=== PATIENT | female | born 1970 | race American Indian/Alaskan Native ===

== ENCOUNTER 2018-08-20 23:55 | Inpatient (IN) | payer MEDICAID, OTHER ==
[2018-08-21] MEDS ORDERED: PROVENTIL IH ONE (00:09)
[2018-08-21] MEDS ORDERED: DECADRON IV ONE (02:57)
[2018-08-21] MEDS ORDERED: DUONEB *Not for PRN Use IH ONE (02:58)
--- NOTE | 2018-08-21 03:01 | Emergency Department Report ---
ED Shortness of Breath HPI - General Chief Complaint: Adult Asthma Stated Complaint: SOB ASTHMA Time Seen by Provider: 08/21/18 02:56 Source: patient Mode of arrival: Ambulatory Limitations: No Limitations - History of Present Illness Initial Comments: 8-year-old -[place] female presents to the emergency room for shortness of breath and asthma flareup that started on . 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 Patient reports she had chest pain but that had resolved after having a treatment in triage. Patient reports she does have a nebulizer machine but has no I Gonzalez nebs as she has not had any flare up in over a year. She does not have a primary care provider at this time. It was noted in triage the patient had a pulse oximetry of 89% on room air. She was tachypneic at 22 and tachycardic at 113. MD Complaint: shortness of breath -: days(s) (2) Improves With: oxygen, bronchodilators Worsens With: coughing, inspiration Known History Of: asthma Associated Symptoms: chest pain (chest resolved), cough Treatments Prior to Arrival: none - Related Data Home Oxygen Therapy: No Home Medications Medication Instructions Recorded Confirmed Last Taken Benzonatate [Zonatuss] 150 mg PO Q8H 07/08/13 07/08/13 Unknown Triamter/Hctz 37.5-25 mg 1 tab PO QDAY 07/08/13 07/08/13 Unknown [Maxzide-25] Previous Rx's Medication Instructions Recorded Last Taken Type Albuterol Sulfate [Albuterol 0.63% 220 mcg IH Q4-6H #25 vial 07/08/13 Unknown Rx NEBS] Azithromycin [Zithromax Z-JUAN JOSE] 250 mg PO DAILY #6 tablet 07/08/13 Unknown Rx Prednisone 20 mg PO QDAY #6 tablet 07/08/13 Unknown Rx Allergies Allergy/AdvReac Type Severity Reaction Status Date / Time Penicillins Allergy Rash Verified 07/08/13 15:11 ED Review of Systems ROS: Stated complaint: SOB ASTHMA Other details as noted in HPI Comment: All other systems reviewed and negative Respiratory: cough, shortness of breath, wheezing Cardiovascular: chest pain ED Past Medical Hx - Past Medical History Previous Medical History?: Yes Hx Asthma: Yes - Surgical History Past Surgical History?: Yes - Social History Smoking Status: Current Every Day Smoker Substance Use Type: None - Medications Home Medications: Home Medications Medication Instructions Recorded Confirmed Last Taken Type Albuterol Sulfate [Albuterol 0.63% 220 mcg IH Q4-6H #25 vial 07/08/13 Unknown Rx NEBS] Azithromycin [Zithromax Z-JUAN JOSE] 250 mg PO DAILY #6 tablet 07/08/13 Unknown Rx Benzonatate [Zonatuss] 150 mg PO Q8H 07/08/13 07/08/13 Unknown History Prednisone 20 mg PO QDAY #6 tablet 07/08/13 Unknown Rx Triamter/Hctz 37.5-25 mg 1 tab PO QDAY 07/08/13 07/08/13 Unknown History [Maxzide-25] ED Physical Exam - General Limitations: No Limitations General appearance: alert, in no apparent distress - Head Head exam: Present: atraumatic, normocephalic - Eye Eye exam: Present: EOMI - ENT ENT exam: Present: mucous membranes moist, TM's normal bilaterally - Respiratory Respiratory exam: Present: wheezes, rhonchi - Cardiovascular Cardiovascular Exam: Present: tachycardia - GI/Abdominal GI/Abdominal exam: Present: soft, normal bowel sounds - Extremities Exam Extremities exam: Present: full ROM - Neurological Exam Neurological exam: Present: alert, oriented X3 - Psychiatric Psychiatric exam: Present: normal affect, normal mood - Skin Skin exam: Present: warm, dry, intact, normal color. Absent: rash ED Course Vital Signs 08/21/18 08/21/18 08/21/18 00:04 00:18 00:42 Temperature 97.9 F Pulse Rate 108 H Pulse Rate [ 99 H 113 H Bilateral Throughout] Respiratory 20 Rate Respiratory 20 22 Rate [Bilateral Throughout] Blood Pressure 178/97 Blood Pressure [Right] O2 Sat by Pulse 89 Oximetry 08/21/18 08/21/18 08/21/18 03:11 03:42 04:56 Temperature Pulse Rate 94 H 92 H Pulse Rate [ Bilateral Throughout] Respiratory 18 16 Rate Respiratory Rate [Bilateral Throughout] Blood Pressure Blood Pressure 165/81 [Right] O2 Sat by Pulse 95 97 93 Oximetry 08/21/18 08/21/18 08/21/18 08:42 08:45 08:50 Temperature Pulse Rate 100 H Pulse Rate [ 104 H 105 H Bilateral Throughout] Respiratory 24 Rate Respiratory 20 20 Rate [Bilateral Throughout] Blood Pressure Blood Pressure 171/91 [Right] O2 Sat by Pulse 97 Oximetry 08/21/18 08/21/18 08:58 09:12 Temperature 98.1 F Pulse Rate 105 H 100 H Pulse Rate [ Bilateral Throughout] Respiratory 24 Rate Respiratory Rate [Bilateral Throughout] Blood Pressure 171/95 Blood Pressure 152/82 [Right] O2 Sat by Pulse 94 Oximetry ED Medical Decision Making - Lab Data Result diagrams: 08/22/18 05:08 08/22/18 05:08 - Radiology Data Radiology results: report reviewed FINAL REPORT EXAM: XR CHEST ROUTINE 2V HISTORY: shortness of breathing and wheezing TECHNIQUE: PA and lateral chest radiographs PRIORS: None. FINDINGS: No mediastinal shift. Cardiac silhouette is not enlarged. No pneumothorax or effusion. Patchy left lower lung opacities. No acute skeletal finding. IMPRESSION: Patchy left lower lung airspace disease without evident effusion. Transcribed By: MB Dictated By: JOSE SAUCEDO MD Electronically Authenticated By: JOSE SAUCEDO MD Signed Date/Time: 08/21/18425 DD/ 7 TD/TT: 08/21/18427 - Medical Decision Making Patient has been evaluated by this provider fast track. Patient's chest x-ray which showed left lower lung opacity Patient had albuterol inhaler in triage which patient reports has helped Patient oxygen saturation was 89 patient was then placed on nasal cannula oxygen 3 L and was able to bring her oxygen to 95% I listened to the patient's lungs patient had decrease in left lower lung as well as rhonchus throughout inspiratory and expiratory. Patient was given dexamethasone 10 mg IM and started a DuoNeb. After patient had DuoNeb and weight of approximately 10 minutes her oxygen level dropped down to 92% on room air. Patient's WBCs 17.9 elevated glucose of 270 and lactic acid of 3.3 sepsis protocol was in place she was started on Levaquin IV and azithromycin IV. Discussed case with Dr. Malachi fitzgeralded patient to be admitted to request for a CTA d-dimer was ordered. Spoke to the hospitalist 7:30 AM he was able to admit the patient under his service. Critical care attestation.: If time is entered above; I have spent that time in minutes in the direct care of this critically ill patient, excluding procedure time. ED Disposition Clinical Impression: Community acquired pneumonia of left lower lobe of lung Disposition: [id number] OP ADMIT IP TO THIS HOSP Is pt being admited?: Yes Does the pt Need Aspirin: Yes Condition: Stable
[2018-08-21] MEDS ORDERED: DECADRON IM ONE (03:15)
[2018-08-21 03:21] LABS: Mean Corpuscular HGB Conc 30 % (30-34); Mean Corpuscular Volume 73 fl (79-97); Platelet Count 331 K/mm3 (140-440); Red Blood Count 5.45 M/mm3 (3.65-5.03); Red Cell Distribution Width 18.6 % (13.2-15.2)
[2018-08-21 03:22] LABS: Hemoglobin 12.1 gm/dl (10.1-14.3)
[2018-08-21 03:23] LABS: Hematocrit 39.8 % (30.3-42.9)
[2018-08-21 03:48] LABS: Alanine Aminotransferase 16 units/L (7-56); Albumin 4.5 g/dL (3.9-5); BUN/Creatinine Ratio 14; Blood Urea Nitrogen 11 mg/dL (7-17); Calcium 9.3 mg/dL (8.4-10.2); Hemolysis Index 24
--- NOTE | 2018-08-21 04:26 | XRay Report ---
FINAL REPORT EXAM: XR CHEST ROUTINE 2V HISTORY: shortness of breathing and wheezing TECHNIQUE: PA and lateral chest radiographs PRIORS: None. FINDINGS: No mediastinal shift. Cardiac silhouette is not enlarged. No pneumothorax or effusion. Patchy left l ower lung opacities. No acute skeletal finding. IMPRESSION: Patchy left lower lung airspace disease without evident effusion.
[2018-08-21 04:35] LABS: Band Neutrophils # (Manual) 0.2 K/mm3; Basophils % (Manual) 0 % (0.0-1.8); Eosinophils % (Manual) 0 % (0.0-4.3); Total Cells Counted 100
[2018-08-21 04:36] LABS: Anisocytosis 1+; Hypochromasia 1+
[2018-08-21] MEDS ORDERED: NACL 0.9% 1000 ML IV ONE (05:22)
[2018-08-21] MEDS: LEVAQUIN 750MG/150ML 750 MG/150 ML BAG IV SCH ×2 (06:29→10:24)
[2018-08-21] MEDS ORDERED: PROVENTIL IH PRN (07:34)
[2018-08-21] MEDS ORDERED: ZOFRAN IV PRN (07:34)
[2018-08-21] MEDS ORDERED: SODIUM CHLORIDE FLUSH SYRINGE 10 ML IV PRN (07:34)
[2018-08-21] MEDS ORDERED: D50W (25GM) Syringe IV PRN ×2 (07:34→07:52)
[2018-08-21 07:35] LABS: Bilirubin,Urine NEG (Negative); Blood,Urine SM (Negative); Color,Urine Straw (Yellow); Mucus,Urine FEW /HPF; Protein,Urine <15 mg/dL mg/dL (Negative); Urobilinogen,Urine < 2.0 mg/dL (<2.0)
--- NOTE | 2018-08-21 07:47 | History and Physical Report ---
History of Present Illness Date of examination: 08/21/18 Date of admission: 08/21/18 Chief complaint: shortness of breath History of present illness: Patient is a 48-year-old -[place] female who presents to the ED with known past medical history of asthma chronic prednisone however noncompliance also history of hypertension has not been taking her pain medication. She presents to the ED with complaints of shortness of breath which started a few days prior to presentation. She denied getting a flu shot last year. She initially felt that this was asthma coming back well fortunately did not have any of her medications to treat this. 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 On arrival to the ED she was not ed to have a saturation of 89% with tachypnea at 22 and tachycardia at 113 with imaging studies concerning for possible pneumonia. The patient reports that she's been having some fullness and pressure for sinus a few days prior to this. Past History Past Medical History: hypertension, other (asthma) Past Surgical History: No surgical history Social history: lives with family, smoking Family history: no significant family history Medications and Allergies Allergies Allergy/AdvReac Type Severity Reaction Status Date / Time Penicillins Allergy Rash Verified 07/08/13 15:11 Home Medications Medication Instructions Recorded Confirmed Last Taken Type Albuterol Sulfate [Albuterol 0.63% 220 mcg IH Q4-6H #25 vial 07/08/13 Unknown Rx NEBS] Azithromycin [Zithromax Z-JUAN JOSE] 250 mg PO DAILY #6 tablet 07/08/13 Unknown Rx Benzonatate [Zonatuss] 150 mg PO Q8H 07/08/13 07/08/13 Unknown History Prednisone 20 mg PO QDAY #6 tablet 07/08/13 Unknown Rx Triamter/Hctz 37.5-25 mg 1 tab PO QDAY 07/08/13 07/08/13 Unknown History [Maxzide-25] Active Meds: Active Medications Azithromycin 500 mg/ Sodium (Chloride) 250 mls @ 250 mls/hr IV Q24HR JEREMIAH; Protocol Levofloxacin/Dextrose (Levaquin 750mg/150ml) 750 mg in 150 mls @ 100 mls/hr IV Q24HR JEREMIAH; Protocol Last Admin: 08/21/18 06:29 Dose: 100 mls/hr Documented by: Review of Systems All systems: negative Constitutional: chills, weakness, no weight loss, no weight gain Cardiovascular: shortness of breath, no chest pain, no orthopnea, no palpitations, no rapid/irregular heart beat Respiratory: cough, shortness of breath, dyspnea on exertion, no cough with sputum, no excessive sputum Exam - Physical Exam Narrative exam: VITAL SIGNS: Reviewed. GENERAL: The patient appeared well nourished and normally developed. In mild to moderate respiratory distress Vital signs as documented. HEAD: No signs of head trauma. EYES: Pupils are equal. Extraocular motions intact. Expothalmus EARS: Hearing grossly intact. MOUTH: Oropharynx is normal. NECK: No adenopathy, no JVD. CHEST: Chest with bilateral expiratory wheezing breath sounds bilaterally. No , rales, or rhonchi. CARDIAC: Regular rate and rhythm. S1 and S2, without murmurs, gallops, or rubs. VASCULAR: No Edema. Peripheral pulses normal and equal in all extremities. ABDOMEN: Soft, without detectable tenderness. No sign of distention. No rebound or guarding, and no masses palpated. Bowel Sounds normal. MUSCULOSKELETAL: Good range of motion of all major joints. Extremities without clubbing, cyanosis or edema. NEUROLOGIC EXAM: Alert and oriented x 3. No focal sensory or strength deficits. Speech normal. Follows commands. PSYCHIATRIC: Mood normal. SKIN: No rash or lesions. - Constitutional Vitals: Temp Pulse Resp BP Pulse Ox 97.9 F 92 H 16 165/81 93 08/21/18 00:04 08/21/18 03:42 08/21/18 04:56 08/21/18 03:42 08/21/18 04:56 Results - Labs CBC & Chem 7: 08/21/18 03:05 08/21/18 03:05 Labs: Laboratory Last Values WBC 17.9 K/mm3 (4.5-11.0) H 08/21/18 03:05 RBC 5.45 M/mm3 (3.65-5.03) H 08/21/18 03:05 Hgb 12.1 gm/dl (10.1-14.3) 08/21/18 03:05 Hct 39.8 % (30.3-42.9) 08/21/18 03:05 MCV 73 fl (79-97) L 08/21/18 03:05 MCH 22 pg (28-32) L 08/21/18 03:05 MCHC 30 % (30-34) 08/21/18 03:05 RDW 18.6 % (13.2-15.2) H 08/21/18 03:05 Plt Count 331 K/mm3 (140-440) 08/21/18 03:05 Add Manual Diff Complete 08/21/18 03:05 Total Counted 100 08/21/18 03:05 Seg Neutrophils % Scene [employer] 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 08/21/18 03:05 Seg Neuts % (Manual) 96.0 % (40.0-70.0) H 08/21/18 03:05 Band Neutrophils % 1.0 % 08/21/18 03:05 Lymphocytes % (Manual) 2.0 % (13.4-35.0) L 08/21/18 03:05 Reactive Lymphs % (Man) 0 % 08/21/18 03:05 Monocytes % (Manual) 1.0 % (0.0-7.3) 08/21/18 03:05 Eosinophils % (Manual) 0 % (0.0-4.3) 08/21/18 03:05 Basophils % (Manual) 0 % (0.0-1.8) 08/21/18 03:05 Metamyelocytes % 0 % 08/21/18 03:05 Myelocytes % 0 % 08/21/18 03:05 Promyelocytes % 0 % 08/21/18 03:05 Blast Cells % 0 % 08/21/18 03:05 Nucleated RBC % Not Reportable 08/21/18 03:05 Seg Neutrophils # Man 17.2 K/mm3 (1.8-7.7) H 08/21/18 03:05 Band Neutrophils # 0.2 K/mm3 08/21/18 03:05 Lymphocytes # (Manual) 0.4 K/mm3 (1.2-5.4) L 08/21/18 03:05 Abs React Lymphs (Man) 0.0 K/mm3 08/21/18 03:05 Monocytes # (Manual) 0.2 K/mm3 (0.0-0.8) 08/21/18 03:05 Eosinophils # (Manual) 0.0 K/mm3 (0.0-0.4) 08/21/18 03:05 Basophils # (Manual) 0.0 K/mm3 (0.0-0.1) 08/21/18 03:05 Metamyelocytes # 0.0 K/mm3 08/21/18 03:05 Myelocytes # 0.0 K/mm3 08/21/18 03:05 Promyelocytes # 0.0 K/mm3 08/21/18 03:05 Blast Cells # 0.0 K/mm3 08/21/18 03:05 WBC Morphology Not Reportable 08/21/18 03:05 Hypersegmented Neuts Not Reportable 08/21/18 03:05 Hyposegmented Neuts Not Reportable 08/21/18 03:05 Hypogranular Neuts Not Reportable 08/21/18 03:05 Smudge Cells Not Reportable 08/21/18 03:05 Toxic Granulation Not Reportable 08/21/18 03:05 Toxic Vacuolation Not Reportable 08/21/18 03:05 Dohle Bodies Not Reportable 08/21/18 03:05 Pelger-Huet Anomaly Not Reportable 08/21/18 03:05 Tonja Rods Not Reportable 08/21/18 03:05 Platelet Estimate Appears normal 08/21/18 03:05 Clumped Platelets Not Reportable 08/21/18 03:05 Plt Clumps, EDTA Not Reportable 08/21/18 03:05 Large Platelets Not Reportable 08/21/18 03:05 Giant Platelets Not Reportable 08/21/18 03:05 Platelet Satelliting Not Reportable 08/21/18 03:05 Plt Morphology Comment Not Reportable 08/21/18 03:05 RBC Morphology Not Reportable 08/21/18 03:05 Dimorphic RBCs Not Reportable 08/21/18 03:05 Polychromasia Not Reportable 08/21/18 03:05 Hypochromasia 1+ 08/21/18 03:05 Poikilocytosis Not Reportable 08/21/18 03:05 Anisocytosis 1+ 08/21/18 03:05 Microcytosis Not Reportable 08/21/18 03:05 Macrocytosis Not Reportable 08/21/18 03:05 Spherocytes Not Reportable 08/21/18 03:05 Pappenheimer Bodies Not Reportable 08/21/18 03:05 Sickle Cells Not Reportable 08/21/18 03:05 Target Cells Not Reportable 08/21/18 03:05 Tear Drop Cells Not Reportable 08/21/18 03:05 Ovalocytes Not Reportable 08/21/18 03:05 Helmet Cells Not Reportable 08/21/18 03:05 [place] Bodies Not Reportable 08/21/18 03:05 [place] Rings Not Reportable 08/21/18 03:05 [place] Cells Not Reportable 08/21/18 03:05 Bite Cells Not Reportable 08/21/18 03:05 Crenated Cell Not Reportable 08/21/18 03:05 Elliptocytes Not Reportable 08/21/18 03:05 Acanthocytes (Spur) Not Reportable 08/21/18 03:05 Rouleaux Not Reportable 08/21/18 03:05 Hemoglobin C Crystals Not Reportable 08/21/18 03:05 Schistocytes Not Reportable 08/21/18 03:05 Malaria parasites Not Reportable 08/21/18 03:05 Shukri Bodies Not Reportable 08/21/18 03:05 Hem Pathologist Commnt No 08/21/18 03:05 D-Dimer 248.45 ng/mlDDU (0-234) H 08/21/18 05:50 Sodium 135 mmol/L (137-145) L 08/21/18 03:05 Potassium 3.9 mmol/L (3.6-5.0) 08/21/18 03:05 Chloride 95.8 mmol/L (98-107) L 08/21/18 03:05 Carbon Dioxide 24 mmol/L (22-30) 08/21/18 03:05 Anion Gap 19 mmol/L 08/21/18 03:05 BUN 11 mg/dL (7-17) 08/21/18 03:05 Creatinine 0.8 mg/dL (0.7-1.2) 08/21/18 03:05 Estimated GFR > 60 ml/min 08/21/18 03:05 BUN/Creatinine Ratio 14 % 08/21/18 03:05 Glucose 270 mg/dL (65-100) H 08/21/18 03:05 Lactic Acid 3.30 mmol/L (0.7-2.0) H* 08/21/18 06:51 Calcium 9.3 mg/dL (8.4-10.2) 08/21/18 03:05 Total Bilirubin 0.20 mg/dL (0.1-1.2) 08/21/18 03:05 AST 11 units/L (5-40) 08/21/18 03:05 ALT 16 units/L (7-56) 08/21/18 03:05 Alkaline Phosphatase 79 units/L (35-129) 08/21/18 03:05 Total Protein 7.5 g/dL (6.3-8.2) 08/21/18 03:05 Albumin 4.5 g/dL (3.9-5) 08/21/18 03:05 Albumin/Globulin Ratio 1.5 % 08/21/18 03:05 TSH 0.411 mlU/mL (0.270-4.200) 08/21/18 03:05 Free T4 1.27 ng/dL (0.76-1.46) 08/21/18 03:05 HCG, Qual Negative (Negative) 08/21/18 03:05 Urine Color Straw (Yellow) 08/21/18 06:51 Urine Turbidity Turbid (Clear) 08/21/18 06:51 Urine pH 5.0 (5.0-7.0) 08/21/18 06:51 Ur Specific [place] 1.033 (1.003-1.030) H 08/21/18 06:51 Urine Protein <15 mg/dl mg/dL (Negative) 08/21/18 06:51 Urine Glucose (UA) >=500 mg/dL (Negative) 08/21/18 06:51 Urine Ketones Tr mg/dL (Negative) 08/21/18 06:51 Urine Blood Sm (Negative) 08/21/18 06:51 Urine Nitrite Neg (Negative) 08/21/18 06:51 Urine Bilirubin Neg (Negative) 08/21/18 06:51 Urine Urobilinogen < 2.0 mg/dL (<2.0) 08/21/18 06:51 Ur Leukocyte Esterase Neg (Negative) 08/21/18 06:51 Urine WBC (Auto) 4.0 /HPF (0.0-6.0) 08/21/18 06:51 Urine RBC (Auto) 6.0 /HPF (0.0-6.0) 08/21/18 06:51 U Epithel Cells (Auto) 2.0 /HPF (0-13.0) 08/21/18 06:51 Urine Mucus Few /HPF 08/21/18 06:51 - Imaging and Cardiology Chest x-ray: image reviewed (PATCHY RIGHT LOBAR INFILTRRATE) Assessment and Plan Assessment and plan: Patient is a 48-year-old -[place] female who presents to the ED with known past medical history of asthma chronic prednisone however noncompliance also history of hypertension has not been taking her pain medication. She presents to the ED with complaints of shortness of breath which started a few days prior to presentation. She denied getting a flu shot last year. She initially felt that this was asthma coming back well fortunately did not have any of her medications to treat this. 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 On arrival to the ED she was noted to have a saturation of 89% with tachypnea at 22 and tachycardia at 113 with imaging studies concerning for possible pneumonia. The patient reports that she's been having some fullness and pressure for sinus a few days prior to this. She unfortunately continues to smoke Acute Respiratory failure with Hypoxia Right lower lobe pneumonia Sepsis secondary to Pneumonia Non compliance with flu shot last year Morbid obesity Tobacco abuse Asthma with exacerbation HTN- Non compliant with meds due to swelling Chronic Prednisone use Lactic acidosis Secondary Coagulopathy Plan: Admit to [facility] Continue abx as started in the ED Start on Steroids taper Nebs, LABA, AVA, oxygen check ABG Insulin sliding scale Counselling provided on need to be complaint, tobacco use Check A1c Counselling on weightloss dvt./gi prophy Plan discussed with patient in detail Advance Directives: Yes Plan of care discussed with patient/family: Yes
--- NOTE | 2018-08-21 08:28 | Cat Scan Report ---
FINAL REPORT EXAM: CT ANGIO CHEST HISTORY: hypoxic and tachypnea TECHNIQUE: CT imaging obtained through the chest in pulmonary angiographic phase following intraveno us administration of contrast. Transaxial, Coronal and sagittal reformats with maximal intensity proj ections are provided. PRIORS: Chest radiograph of the same date FINDINGS: Normal caliber main pulmonary artery. Suboptimal opacification of the pulmonary arterial tree. No sad dle pulmonary embolism. No pericardial effusion. A prominent right hilar lymph node measures 17 x 19 millimeters on axial series 2, image 48. Thoracic aorta is normal in course and caliber. No periaortic fluid or stranding. No pneumothorax or effusion. Patchy areas of ground-glass attenuation are present in the left greater than right lung. Imaged portion of the upper abdomen is unremarkable. The superficial soft tissues are unremarkable. No acute bony abnormality or worrisome osseous lesions identified. IMPRESSION: No saddle pulmonary embolism. Suboptimal opacification of the pulmonary arterial tree compromises mor e detailed evaluation. Multifocal left greater than right lung airspace disease without effusion or pneumothorax.
[2018-08-21] MEDS: PULMICORT IH SCH ×2 (08:39→19:53)
[2018-08-21] MEDS: BROVANA NEBU IH SCH ×2 (08:39→19:53)
[2018-08-21] MEDS: DUONEB *Not for PRN Use IH SCH ×3 (08:40→19:59)
[2018-08-21] MEDS ORDERED: APRESOLINE ONE (08:49)
[2018-08-21] MEDS: APRESOLINE IV PRN (08:58)
[2018-08-21] MEDS: ZITHROMAX 500 MG in NACL 0.9% 250ML 250 ML IV SCH (10:22)
[2018-08-21] MEDS: MAXZIDE-25 PO SCH ×2 (10:23→10:24)
[2018-08-21] MEDS: SODIUM CHLORIDE FLUSH SYRINGE 10 ML IV SCH ×2 (10:24→22:21)
[2018-08-21] MEDS: HEPARIN SUB-Q SCH ×2 (11:30→22:20)
[2018-08-21] MEDS: NACL 0.9% 1000 ML 1,000 ML IV SCH (12:45)
[2018-08-21] MEDS: HABITROL TD SCH (12:45)
[2018-08-21] MEDS: HumaLOG SUB-Q SCH ×3 (12:50→22:32)
[2018-08-21] MEDS: TESSALON PERLES PO SCH ×2 (14:00→23:52)
[2018-08-21] MEDS: SOLU-Medrol IV SCH ×2 (15:37→22:20)
[2018-08-21] MEDS: TYLENOL PO PRN (15:40)
[2018-08-21] MEDS ORDERED: BENADRYL PO ONE (21:24)
[2018-08-21] MEDS: MORPHINE IV PRN (22:21)
[2018-08-22] MEDS: DUONEB *Not for PRN Use IH SCH ×4 (02:18→21:15)
[2018-08-22 05:32] LABS: Hematocrit 36.6 % (30.3-42.9); Hemoglobin 11.2 gm/dl (10.1-14.3); Mean Corpuscular HGB Conc 31 % (30-34); Mean Corpuscular Volume 71 fl (79-97); Platelet Count 318 K/mm3 (140-440); Red Blood Count 5.15 M/mm3 (3.65-5.03); Red Cell Distribution Width 18.7 % (13.2-15.2)
[2018-08-22] MEDS: SOLU-Medrol IV SCH ×2 (05:39→14:59)
[2018-08-22] MEDS: MORPHINE IV PRN (05:40)
[2018-08-22] MEDS: TESSALON PERLES PO SCH ×3 (05:40→22:35)
[2018-08-22 05:42] LABS: BUN/Creatinine Ratio 14; Blood Urea Nitrogen 11 mg/dL (7-17); Calcium 8.8 mg/dL (8.4-10.2); Hemolysis Index 3
[2018-08-22 06:49] LABS: Band Neutrophils # (Manual) 0.7 K/mm3; Basophils % (Manual) 0 % (0.0-1.8); Eosinophils % (Manual) 0 % (0.0-4.3); Total Cells Counted 100
[2018-08-22 06:50] LABS: Anisocytosis 1+; Platelet Estimate Consistent w Auto
[2018-08-22] MEDS: BROVANA NEBU IH SCH ×2 (08:12→19:39)
[2018-08-22] MEDS: PULMICORT IH SCH ×2 (08:12→19:39)
[2018-08-22] MEDS: LEVAQUIN 750MG/150ML 750 MG/150 ML BAG IV SCH (09:05)
[2018-08-22] MEDS: HumaLOG SUB-Q SCH ×4 (09:06→22:49)
[2018-08-22] MEDS: HABITROL TD SCH (09:08)
[2018-08-22] MEDS: HEPARIN SUB-Q SCH ×2 (09:08→22:35)
[2018-08-22] MEDS: MAXZIDE-25 PO SCH (09:10)
[2018-08-22] MEDS: SODIUM CHLORIDE FLUSH SYRINGE 10 ML IV SCH ×2 (09:20→22:35)
[2018-08-22] MEDS: ZITHROMAX 500 MG in NACL 0.9% 250ML 250 ML IV SCH (12:28)
--- NOTE | 2018-08-22 14:31 | Progress Note ---
Assessment and Plan Assessment and plan: Patient is a 48-year-old -[place] female who presents to the ED with known past medical history of asthma chronic prednisone however noncompliance also history of hypertension has not been taking her pain medication. She presents to the ED with complaints of shortness of breath which started a few days prior to presentation. She denied getting a flu shot last year. She initially felt that this was asthma coming back well fortunately did not have any of her medications to treat this. 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 On arrival to the ED she was noted to have a saturation of 89% with tachypnea at 22 and tachycardia at 113 with imaging studies concerning for possible pneumonia. The patient reports that she's been having some fullness and pressure for sinus a few days prior to this. She unfortunately continues to smoke Acute Respiratory failure with Hypoxia Right lower lobe pneumonia Sepsis secondary to Pneumonia Non compliance with flu shot last year Morbid obesity Diabetes Mellitus- by A1C criteria- ?new diagnosis Tobacco abuse Asthma with exacerbation HTN- Non compliant with meds due to swelling Chronic Prednisone use Lactic acidosis Secondary Coagulopathy Plan: Continue supportive care Continue abx as started in the ED Taper Steroids Nebs, LABA, AVA, oxygen check ABG Insulin sliding scale Counselling provided on need to be complaint, tobacco use A1c 7.5- discussed with patient. Counselling on weightloss dvt./gi prophy Plan discussed with patient in detail History Interval history: Patient seen and examined, admitted with respiratory failure. Reports some improvement but not yet at baseline. Hospitalist Physical - Physical exam Narrative exam: VITAL SIGNS: Reviewed. GENERAL: The patient appeared well nourished and normally developed. In mild to moderate respiratory distress Vital signs as documented. HEAD: No signs of head trauma. EYES: Pupils are equal. Extraocular motions intact. Expothalmus EARS: Hearing grossly intact. MOUTH: Oropharynx is normal. NECK: No adenopathy, no JVD. CHEST: Chest with bilateral expiratory wheezing breath sounds bilaterally persist, although improved compared to yesterday. No , rales, or rhonchi. CARDIAC: Regular rate and rhythm. S1 and S2, without murmurs, gallops, or rubs. VASCULAR: No Edema. Peripheral pulses normal and equal in all extremities. ABDOMEN: Soft, without detectable tenderness. No sign of distention. No rebound or guarding, and no masses palpated. Bowel Sounds normal. MUSCULOSKELETAL: Good range of motion of all major joints. Extremities without clubbing, cyanosis or edema. NEUROLOGIC EXAM: Alert and oriented x 3. No focal sensory or strength deficits. Speech normal. Follows commands. PSYCHIATRIC: Mood normal. SKIN: No rash or lesions. - Constitutional Vitals: Temp Pulse Resp BP Pulse Ox 98.6 F 78 20 154/81 94 08/22/18 05:20 08/22/18 13:58 08/22/18 13:58 08/22/18 05:20 08/22/18 08:15 Results - Labs CBC & Chem 7: 08/22/18 05:08 08/22/18 05:08 Labs: Laboratory Last Values WBC 18.4 K/mm3 (4.5-11.0) H 08/22/18 05:08 RBC 5.15 M/mm3 (3.65-5.03) H 08/22/18 05:08 Hgb 11.2 gm/dl (10.1-14.3) 08/22/18 05:08 Hct 36.6 % (30.3-42.9) 08/22/18 05:08 MCV 71 fl (79-97) L 08/22/18 05:08 MCH 22 pg (28-32) L 08/22/18 05:08 MCHC 31 % (30-34) 08/22/18 05:08 RDW 18.7 % (13.2-15.2) H 08/22/18 05:08 Plt Count 318 K/mm3 (140-440) 08/22/18 05:08 Add Manual Diff Complete 08/22/18 05:08 Total Counted 100 08/22/18 05:08 Seg Neutrophils % Medical Record Librarians Teacher 08/22/18 05:08 Seg Neuts % (Manual) 91.0 % (40.0-70.0) H 08/22/18 05:08 Band Neutrophils % 4.0 % 08/22/18 05:08 Lymphocytes % (Manual) 4.0 % (13.4-35.0) L 08/22/18 05:08 Reactive Lymphs % (Man) 0 % 08/22/18 05:08 Monocytes % (Manual) 1.0 % (0.0-7.3) 08/22/18 05:08 Eosinophils % (Manual) 0 % (0.0-4.3) 08/22/18 05:08 Basophils % (Manual) 0 % (0.0-1.8) 08/22/18 05:08 Metamyelocytes % 0 % 08/22/18 05:08 Myelocytes % 0 % 08/22/18 05:08 Promyelocytes % 0 % 08/22/18 05:08 Blast Cells % 0 % 08/22/18 05:08 Nucleated RBC % Not Reportable 08/22/18 05:08 Seg Neutrophils # Man 16.7 K/mm3 (1.8-7.7) H 08/22/18 05:08 Band Neutrophils # 0.7 K/mm3 08/22/18 05:08 Lymphocytes # (Manual) 0.7 K/mm3 (1.2-5.4) L 08/22/18 05:08 Abs React Lymphs (Man) 0.0 K/mm3 08/22/18 05:08 Monocytes # (Manual) 0.2 K/mm3 (0.0-0.8) 08/22/18 05:08 Eosinophils # (Manual) 0.0 K/mm3 (0.0-0.4) 08/22/18 05:08 Basophils # (Manual) 0.0 K/mm3 (0.0-0.1) 08/22/18 05:08 Metamyelocytes # 0.0 K/mm3 08/22/18 05:08 Myelocytes # 0.0 K/mm3 08/22/18 05:08 Promyelocytes # 0.0 K/mm3 08/22/18 05:08 Blast Cells # 0.0 K/mm3 08/22/18 05:08 WBC Morphology Not Reportable 08/22/18 05:08 Hypersegmented Neuts Not Reportable 08/22/18 05:08 Hyposegmented Neuts Not Reportable 08/22/18 05:08 Hypogranular Neuts Not Reportable 08/22/18 05:08 Smudge Cells Not Reportable 08/22/18 05:08 Toxic Granulation Not Reportable 08/22/18 05:08 Toxic Vacuolation Not Reportable 08/22/18 05:08 Dohle Bodies Not Reportable 08/22/18 05:08 Pelger-Huet Anomaly Not Reportable 08/22/18 05:08 Tonja Rods Not Reportable 08/22/18 05:08 Platelet Estimate Consistent w auto 08/22/18 05:08 Clumped Platelets Not Reportable 08/22/18 05:08 Plt Clumps, EDTA Not Reportable 08/22/18 05:08 Large Platelets Not Reportable 08/22/18 05:08 Giant Platelets Not Reportable 08/22/18 05:08 Platelet Satelliting Not Reportable 08/22/18 05:08 Plt Morphology Comment Not Reportable 08/22/18 05:08 RBC Morphology Not Reportable 08/22/18 05:08 Dimorphic RBCs Not Reportable 08/22/18 05:08 Polychromasia Not Reportable 08/22/18 05:08 Hypochromasia Not Reportable 08/22/18 05:08 Poikilocytosis Not Reportable 08/22/18 05:08 Anisocytosis 1+ 08/22/18 05:08 Microcytosis Not Reportable 08/22/18 05:08 Macrocytosis Not Reportable 08/22/18 05:08 Spherocytes Not Reportable 08/22/18 05:08 Pappenheimer Bodies Not Reportable 08/22/18 05:08 Sickle Cells Not Reportable 08/22/18 05:08 Target Cells Not Reportable 08/22/18 05:08 Tear Drop Cells Not Reportable 08/22/18 05:08 Ovalocytes Not Reportable 08/22/18 05:08 Helmet Cells Not Reportable 08/22/18 05:08 [place] Bodies Not Reportable 08/22/18 05:08 [place] Rings Not Reportable 08/22/18 05:08 [place] Cells Not Reportable 08/22/18 05:08 Bite Cells Not Reportable 08/22/18 05:08 Crenated Cell Not Reportable 08/22/18 05:08 Elliptocytes Few 08/22/18 05:08 Acanthocytes (Spur) Not Reportable 08/22/18 05:08 Rouleaux Not Reportable 08/22/18 05:08 Hemoglobin C Crystals Not Reportable 08/22/18 05:08 Schistocytes Not Reportable 08/22/18 05:08 Malaria parasites Not Reportable 08/22/18 05:08 Shukri Bodies Not Reportable 08/22/18 05:08 Hem Pathologist Commnt No 08/22/18 05:08 D-Dimer 248.45 ng/mlDDU (0-234) H 08/21/18 05:50 POC ABG pH 7.412 (7.35-7.45) 08/21/18 09:07 POC ABG pCO2 35.4 (35-45) 08/21/18 09:07 POC ABG pO2 56 (80-105) L 08/21/18 09:07 POC ABG HCO3 22.5 08/21/18 09:07 POC ABG Total CO2 24 08/21/18 09:07 POC ABG O2 Sat 89 08/21/18 09:07 POC ABG Base Excess -2 08/21/18 09:07 FiO2 21 % 08/21/18 09:07 Sodium 138 mmol/L (137-145) 08/22/18 05:08 Potassium 4.0 mmol/L (3.6-5.0) 08/22/18 05:08 Chloride 100.7 mmol/L (98-107) 08/22/18 05:08 Carbon Dioxide 24 mmol/L (22-30) 08/22/18 05:08 Anion Gap 17 mmol/L 08/22/18 05:08 BUN 11 mg/dL (7-17) 08/22/18 05:08 Creatinine 0.8 mg/dL (0.7-1.2) 08/22/18 05:08 Estimated GFR > 60 ml/min 08/22/18 05:08 BUN/Creatinine Ratio 14 % 08/22/18 05:08 Glucose 196 mg/dL (65-100) H 08/22/18 05:08 POC Glucose 247 (70-105) H 08/22/18 11:28 Hemoglobin A1c 7.5 % (4-6) H 08/21/18 08:19 Lactic Acid 1.00 mmol/L (0.7-2.0) 08/22/18 05:08 Calcium 8.8 mg/dL (8.4-10.2) 08/22/18 05:08 Total Bilirubin 0.20 mg/dL (0.1-1.2) 08/21/18 03:05 AST 11 units/L (5-40) 08/21/18 03:05 ALT 16 units/L (7-56) 08/21/18 03:05 Alkaline Phosphatase 79 units/L (35-129) 08/21/18 03:05 Total Protein 7.5 g/dL (6.3-8.2) 08/21/18 03:05 Albumin 4.5 g/dL (3.9-5) 08/21/18 03:05 Albumin/Globulin Ratio 1.5 % 08/21/18 03:05 TSH 0.411 mlU/mL (0.270-4.200) 08/21/18 03:05 Free T4 1.27 ng/dL (0.76-1.46) 08/21/18 03:05 HCG, Qual Negative (Negative) 08/21/18 03:05 Urine Color Straw (Yellow) 08/21/18 06:51 Urine Turbidity Turbid (Clear) 08/21/18 06:51 Urine pH 5.0 (5.0-7.0) 08/21/18 06:51 Ur Specific [place] 1.033 (1.003-1.030) H 08/21/18 06:51 Urine Protein <15 mg/dl mg/dL (Negative) 08/21/18 06:51 Urine Glucose (UA) >=500 mg/dL (Negative) 08/21/18 06:51 Urine Ketones Tr mg/dL (Negative) 08/21/18 06:51 Urine Blood Sm (Negative) 08/21/18 06:51 Urine Nitrite Neg (Negative) 08/21/18 06:51 Urine Bilirubin Neg (Negative) 08/21/18 06:51 Urine Urobilinogen < 2.0 mg/dL (<2.0) 08/21/18 06:51 Ur Leukocyte Esterase Neg (Negative) 08/21/18 06:51 Urine WBC (Auto) 4.0 /HPF (0.0-6.0) 08/21/18 06:51 Urine RBC (Auto) 6.0 /HPF (0.0-6.0) 08/21/18 06:51 U Epithel Cells (Auto) 2.0 /HPF (0-13.0) 08/21/18 06:51 Urine Mucus Few /HPF 08/21/18 06:51 Blood Type A POSITIVE 08/21/18 05:50 Antibody Screen Negative 08/21/18 05:50
[2018-08-22] MEDS ORDERED: D50W (25GM) Syringe IV PRN (14:32)
[2018-08-22] MEDS: TYLENOL PO PRN (14:57)
[2018-08-22] MEDS: NACL 0.9% 1000 ML 1,000 ML IV SCH (18:51)
[2018-08-22] MEDS: COLACE PO SCH (22:35)
[2018-08-22] MEDS: LANTUS SUB-Q SCH (22:35)
[2018-08-22] MEDS: MILK OF MAGNESIA PO PRN (22:36)
[2018-08-23] MEDS: DUONEB *Not for PRN Use IH SCH ×4 (02:10→21:23)
[2018-08-23] MEDS: SOLU-Medrol IV SCH ×2 (06:31→15:35)
[2018-08-23] MEDS: MILK OF MAGNESIA PO PRN (06:32)
[2018-08-23] MEDS: TESSALON PERLES PO SCH ×3 (06:32→22:06)
[2018-08-23] MEDS: PULMICORT IH SCH ×2 (07:01→21:22)
[2018-08-23] MEDS: BROVANA NEBU IH SCH ×2 (07:01→21:22)
[2018-08-23] MEDS: HumaLOG SUB-Q SCH ×4 (08:35→22:07)
[2018-08-23] MEDS: MAXZIDE-25 PO SCH (10:45)
[2018-08-23] MEDS: LEVAQUIN 750MG/150ML 750 MG/150 ML BAG IV SCH (10:45)
[2018-08-23] MEDS: HABITROL TD SCH (10:45)
[2018-08-23] MEDS: COLACE PO SCH ×2 (10:45→22:06)
[2018-08-23] MEDS: SODIUM CHLORIDE FLUSH SYRINGE 10 ML IV SCH ×2 (10:46→22:08)
[2018-08-23] MEDS: ZITHROMAX 500 MG in NACL 0.9% 250ML 250 ML IV SCH (11:17)
[2018-08-23] MEDS: HEPARIN SUB-Q SCH ×2 (11:19→22:08)
[2018-08-23] MEDS ORDERED: AFLURIA QUAD 2018-2019 SYRINGE IM ONE (12:00)
[2018-08-23] MEDS: TYLENOL PO PRN (17:52)
--- NOTE | 2018-08-23 17:53 | Progress Note ---
Assessment and Plan Assessment and plan: Patient is a 48-year-old -[place] female who presents to the ED with known past medical history of asthma chronic prednisone however noncompliance also history of hypertension has not been taking her pain medication. She presents to the ED with complaints of shortness of breath which started a few days prior to presentation. She denied getting a flu shot last year. She initially felt that this was asthma coming back well fortunately did not have any of her medications to treat this. 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 On arrival to the ED she was noted to have a saturation of 89% with tachypnea at 22 and tachycardia at 113 with imaging studies concerning for possible pneumonia. The patient reports that she's been having some fullness and pressure for sinus a few days prior to this. She unfortunately continues to smoke Acute Respiratory failure with Hypoxia Nocturnal Hypoxia Right lower lobe pneumonia Sepsis secondary to Pneumonia Non compliance with flu shot last year Morbid obesity Diabetes Mellitus- by A1C criteria- ?new diagnosis Tobacco abuse Asthma with exacerbation HTN- Non compliant with meds due to swelling Chronic Prednisone use Lactic acidosis Secondary Coagulopathy Plan: Continue supportive care Continue abx as started in the ED Pulmonary consult placed. Taper Steroids Nebs, LABA, AVA, oxygen check ABG Insulin sliding scale Counselling provided on need to be complaint, tobacco use A1c 7.5- discussed with patient. Counselling on weightloss dvt./gi prophy Plan discussed with patient in detail History Interval history: Patient seen and examined, admitted with respiratory failure. Reports some improvement but not yet at baseline. still with intermittent cough. Nursing staff reports Hypoxia at night time. Hospitalist Physical - Physical exam Narrative exam: VITAL SIGNS: Reviewed. GENERAL: The patient appeared well nourished and normally developed. In mild to moderate respiratory distress Vital signs as documented. HEAD: No signs of head trauma. EYES: Pupils are equal. Extraocular motions intact. Expothalmus EARS: Hearing grossly intact. MOUTH: Oropharynx is normal. NECK: No adenopathy, no JVD. CHEST: Chest with bilateral expiratory wheezing breath sounds bilaterally persist, . No , rales, or rhonchi. CARDIAC: Regular rate and rhythm. S1 and S2, without murmurs, gallops, or rubs. VASCULAR: No Edema. Peripheral pulses normal and equal in all extremities. ABDOMEN: Soft, without detectable tenderness. No sign of distention. No rebound or guarding, and no masses palpated. Bowel Sounds normal. MUSCULOSKELETAL: Good range of motion of all major joints. Extremities without clubbing, cyanosis or edema. NEUROLOGIC EXAM: Alert and oriented x 3. No focal sensory or strength def icits. Speech normal. Follows commands. PSYCHIATRIC: Mood normal. SKIN: No rash or lesions. - Constitutional Vitals: Temp Pulse Resp BP Pulse Ox 99.8 F H 112 H 22 157/95 89 08/23/18 17:25 08/23/18 17:25 08/23/18 17:25 08/23/18 17:25 08/23/18 17:25 Results - Labs CBC & Chem 7: 08/22/18 05:08 08/22/18 05:08 Labs: Laboratory Last Values WBC 18.4 K/mm3 (4.5-11.0) H 08/22/18 05:08 RBC 5.15 M/mm3 (3.65-5.03) H 08/22/18 05:08 Hgb 11.2 gm/dl (10.1-14.3) 08/22/18 05:08 Hct 36.6 % (30.3-42.9) 08/22/18 05:08 MCV 71 fl (79-97) L 08/22/18 05:08 MCH 22 pg (28-32) L 08/22/18 05:08 MCHC 31 % (30-34) 08/22/18 05:08 RDW 18.7 % (13.2-15.2) H 08/22/18 05:08 Plt Count 318 K/mm3 (140-440) 08/22/18 05:08 Add Manual Diff Complete 08/22/18 05:08 Total Counted 100 08/22/18 05:08 Seg Neutrophils % Gasser Machine Operator 08/22/18 05:08 Seg Neuts % (Manual) 91.0 % (40.0-70.0) H 08/22/18 05:08 Band Neutrophils % 4.0 % 08/22/18 05:08 Lymphocytes % (Manual) 4.0 % (13.4-35.0) L 08/22/18 05:08 Reactive Lymphs % (Man) 0 % 08/22/18 05:08 Monocytes % (Manual) 1.0 % (0.0-7.3) 08/22/18 05:08 Eosinophils % (Manual) 0 % (0.0-4.3) 08/22/18 05:08 Basophils % (Manual) 0 % (0.0-1.8) 08/22/18 05:08 Metamyelocytes % 0 % 08/22/18 05:08 Myelocytes % 0 % 08/22/18 05:08 Promyelocytes % 0 % 08/22/18 05:08 Blast Cells % 0 % 08/22/18 05:08 Nucleated RBC % Not Reportable 08/22/18 05:08 Seg Neutrophils # Man 16.7 K/mm3 (1.8-7.7) H 08/22/18 05:08 Band Neutrophils # 0.7 K/mm3 08/22/18 05:08 Lymphocytes # (Manual) 0.7 K/mm3 (1.2-5.4) L 08/22/18 05:08 Abs React Lymphs (Man) 0.0 K/mm3 08/22/18 05:08 Monocytes # (Manual) 0.2 K/mm3 (0.0-0.8) 08/22/18 05:08 Eosinophils # (Manual) 0.0 K/mm3 (0.0-0.4) 08/22/18 05:08 Basophils # (Manual) 0.0 K/mm3 (0.0-0.1) 08/22/18 05:08 Metamyelocytes # 0.0 K/mm3 08/22/18 05:08 Myelocytes # 0.0 K/mm3 08/22/18 05:08 Promyelocytes # 0.0 K/mm3 08/22/18 05:08 Blast Cells # 0.0 K/mm3 08/22/18 05:08 WBC Morphology Not Reportable 08/22/18 05:08 Hypersegmented Neuts Not Reportable 08/22/18 05:08 Hyposegmented Neuts Not Reportable 08/22/18 05:08 Hypogranular Neuts Not Reportable 08/22/18 05:08 Smudge Cells Not Reportable 08/22/18 05:08 Toxic Granulation Not Reportable 08/22/18 05:08 Toxic Vacuolation Not Reportable 08/22/18 05:08 Dohle Bodies Not Reportable 08/22/18 05:08 Pelger-Huet Anomaly Not Reportable 08/22/18 05:08 Tonja Rods Not Reportable 08/22/18 05:08 Platelet Estimate Consistent w auto 08/22/18 05:08 Clumped Platelets Not Reportable 08/22/18 05:08 Plt Clumps, EDTA Not Reportable 08/22/18 05:08 Large Platelets Not Reportable 08/22/18 05:08 Giant Platelets Not Reportable 08/22/18 05:08 Platelet Satelliting Not Reportable 08/22/18 05:08 Plt Morphology Comment Not Reportable 08/22/18 05:08 RBC Morphology Not Reportable 08/22/18 05:08 Dimorphic RBCs Not Reportable 08/22/18 05:08 Polychromasia Not Reportable 08/22/18 05:08 Hypochromasia Not Reportable 08/22/18 05:08 Poikilocytosis Not Reportable 08/22/18 05:08 Anisocytosis 1+ 08/22/18 05:08 Microcytosis Not Reportable 08/22/18 05:08 Macrocytosis Not Reportable 08/22/18 05:08 Spherocytes Not Reportable 08/22/18 05:08 Pappenheimer Bodies Not Reportable 08/22/18 05:08 Sickle Cells Not Reportable 08/22/18 05:08 Target Cells Not Reportable 08/22/18 05:08 Tear Drop Cells Not Reportable 08/22/18 05:08 Ovalocytes Not Reportable 08/22/18 05:08 Helmet Cells Not Reportable 08/22/18 05:08 [place] Bodies Not Reportable 08/22/18 05:08 [place] Rings Not Reportable 08/22/18 05:08 [place] Cells Not Reportable 08/22/18 05:08 Bite Cells Not Reportable 08/22/18 05:08 Crenated Cell Not Reportable 08/22/18 05:08 Elliptocytes Few 08/22/18 05:08 Acanthocytes (Spur) Not Reportable 08/22/18 05:08 Rouleaux Not Reportable 08/22/18 05:08 Hemoglobin C Crystals Not Reportable 08/22/18 05:08 Schistocytes Not Reportable 08/22/18 05:08 Malaria parasites Not Reportable 08/22/18 05:08 Shukri Bodies Not Reportable 08/22/18 05:08 Hem Pathologist Commnt No 08/22/18 05:08 D-Dimer 248.45 ng/mlDDU (0-234) H 08/21/18 05:50 POC ABG pH 7.412 (7.35-7.45) 08/21/18 09:07 POC ABG pCO2 35.4 (35-45) 08/21/18 09:07 POC ABG pO2 56 (80-105) L 08/21/18 09:07 POC ABG HCO3 22.5 08/21/18 09:07 POC ABG Total CO2 24 08/21/18 09:07 POC ABG O2 Sat 89 08/21/18 09:07 POC ABG Base Excess -2 08/21/18 09:07 FiO2 21 % 08/21/18 09:07 Sodium 138 mmol/L (137-145) 08/22/18 05:08 Potassium 4.0 mmol/L (3.6-5.0) 08/22/18 05:08 Chloride 100.7 mmol/L (98-107) 08/22/18 05:08 Carbon Dioxide 24 mmol/L (22-30) 08/22/18 05:08 Anion Gap 17 mmol/L 08/22/18 05:08 BUN 11 mg/dL (7-17) 08/22/18 05:08 Creatinine 0.8 mg/dL (0.7-1.2) 08/22/18 05:08 Estimated GFR > 60 ml/min 08/22/18 05:08 BUN/Creatinine Ratio 14 % 08/22/18 05:08 Glucose 196 mg/dL (65-100) H 08/22/18 05:08 POC Glucose 174 (70-105) H 08/23/18 17:30 Hemoglobin A1c 7.5 % (4-6) H 08/21/18 08:19 Lactic Acid 1.00 mmol/L (0.7-2.0) 08/22/18 05:08 Calcium 8.8 mg/dL (8.4-10.2) 08/22/18 05:08 Total Bilirubin 0.20 mg/dL (0.1-1.2) 08/21/18 03:05 AST 11 units/L (5-40) 08/21/18 03:05 ALT 16 units/L (7-56) 08/21/18 03:05 Alkaline Phosphatase 79 units/L (35-129) 08/21/18 03:05 Total Protein 7.5 g/dL (6.3-8.2) 08/21/18 03:05 Albumin 4.5 g/dL (3.9-5) 08/21/18 03:05 Albumin/Globulin Ratio 1.5 % 08/21/18 03:05 TSH 0.411 mlU/mL (0.270-4.200) 08/21/18 03:05 Free T4 1.27 ng/dL (0.76-1.46) 08/21/18 03:05 HCG, Qual Negative (Negative) 08/21/18 03:05 Urine Color Straw (Yellow) 08/21/18 06:51 Urine Turbidity Turbid (Clear) 08/21/18 06:51 Urine pH 5.0 (5.0-7.0) 08/21/18 06:51 Ur Specific [place] 1.033 (1.003-1.030) H 08/21/18 06:51 Urine Protein <15 mg/dl mg/dL (Negative) 08/21/18 06:51 Urine Glucose (UA) >=500 mg/dL (Negative) 08/21/18 06:51 Urine Ketones Tr mg/dL (Negative) 08/21/18 06:51 Urine Blood Sm (Negative) 08/21/18 06:51 Urine Nitrite Neg (Negative) 08/21/18 06:51 Urine Bilirubin Neg (Negative) 08/21/18 06:51 Urine Urobilinogen < 2.0 mg/dL (<2.0) 08/21/18 06:51 Ur Leukocyte Esterase Neg (Negative) 08/21/18 06:51 Urine WBC (Auto) 4.0 /HPF (0.0-6.0) 08/21/18 06:51 Urine RBC (Auto) 6.0 /HPF (0.0-6.0) 08/21/18 06:51 U Epithel Cells (Auto) 2.0 /HPF (0-13.0) 08/21/18 06:51 Urine Mucus Few /HPF 08/21/18 06:51 Blood Type A POSITIVE 08/21/18 05:50 Antibody Screen Negative 08/21/18 05:50
--- NOTE | 2018-08-23 20:47 | Consultation ---
History of Present Illness Consult date: 08/23/18 Reason for consult: dyspnea, cough, asthma History of present illness: PULMONARY CONSULTATION DR. SAMUEL THANK YOU FOR ASKING US TO PARTICIPATE IN THE CARE OF THIS PATIENT Patient is a 48-year-old -[place] female who presents to the ED with known past medical history of asthma chronic prednisone however noncompliance also history of hypertension has not been taking her pain medication. She presents to the ED with complaints of shortness of breath which started a few days prior to presentation. She denied getting a flu shot last year. She initially felt that this was asthma coming back well fortunately did not have any of her medications to treat this. 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 On arrival to the ED she was noted to have a saturation of 89% with tachypnea at 22 and tachycardia at 113 with imaging studies concerning for possible pneumonia. The patient reports that she's been having some fullness and pressure for sinus a few days prior to this. Patient having diffuse bilateral wheezing. O2 saturation 97% on 1 1/2 litres O2. Patient smokes 1/2 a pack a day for 20 years. Counseled to stop smoking. Denies alcohol or drug abuse. and has 3 children. 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 Chest xray reported patchy air space disease left lower lobe. CTA of chest bilateral multifocal infiltrates. No PE reported. Past History Past Medical History: hypertension, other (asthma) Past Surgical History: No surgical history Social history: lives with family, smoking Family history: no significant family history Medications and Allergies Allergies Allergy/AdvReac Type Severity Reaction Status Date / Time Penicillins Allergy Rash Verified 07/08/13 15:11 Home Medications Medication Instructions Recorded Confirmed Last Taken Type Albuterol Sulfate [Albuterol 0.63% 220 mcg IH Q4-6H #25 vial 07/08/13 Unknown Rx NEBS] Azithromycin [Zithromax Z-JUAN JOSE] 250 mg PO DAILY #6 tablet 07/08/13 Unknown Rx Benzonatate [Zonatuss] 150 mg PO Q8H 07/08/13 07/08/13 Unknown History Prednisone 20 mg PO QDAY #6 tablet 07/08/13 Unknown Rx Triamter/Hctz 37.5-25 mg 1 tab PO QDAY 07/08/13 07/08/13 Unknown History [Maxzide-25] Active Meds: Active Medications Acetaminophen (Tylenol) 650 mg PO Q4H PRN PRN Reason: Pain MILD(1-3)/Fever >100.5/CARNES Last Admin: 08/23/18 17:52 Dose: 650 mg Documented by: Albuterol (Proventil) 2.5 mg IH Q4HRT PRN PRN Reason: Shortness Of Breath Albuterol/Ipratropium (Duoneb *Not For Prn Use*) 1 ampul IH TIDRT [facility] Last Admin: 08/23/18 13:52 Dose: 1 ampul Documented by: Arformoterol Tartrate (Brovana Nebu) 15 mcg IH Q12HRT [facility] Last Admin: 08/23/18 07:01 Dose: 15 mcg Documented by: Benzonatate (Tessalon Perles) 100 mg PO Q8H [facility] Last Admin: 08/23/18 15:36 Dose: 100 mg Documented by: Budesonide (Pulmicort) 0.5 mg IH Q12HRT [facility] Last Admin: 08/23/18 07:01 Dose: 0.5 mg Documented by: Dextrose (D50w (25gm) Syringe) 50 ml IV PRN PRN PRN Reason: Hypoglycemia Docusate Sodium (Colace) 100 mg PO BID [facility] Last Admin: 08/23/18 10:45 Dose: 100 mg Documented by: Heparin Sodium (Porcine) (Heparin) 5,000 unit SUB-Q Q12HR [facility] Last Admin: 08/23/18 11:19 Dose: 5,000 unit Documented by: Hydralazine HCl (Apresoline) 10 mg IV Q4H PRN PRN Reason: Hypertension Last Admin: 08/21/18 08:58 Dose: 10 mg Documented by: Levofloxacin/Dextrose (Levaquin 750mg/150ml) 750 mg in 150 mls @ 100 mls/hr IV Q24HR [facility]; Protocol Last Admin: 08/23/18 10:45 Dose: 100 mls/hr Documented by: Insulin Glargine (Lantus) 20 units SUB-Q QHS [facility] Last Admin: 08/22/18 22:35 Dose: 20 units Documented by: Insulin Human Lispro (Humalog) 0 unit SUB-Q ACHS [facility]; Protocol Last Admin: 08/23/18 17:54 Dose: 3 unit Documented by: Magnesium Hydroxide (Milk Of Magnesia) 30 ml PO Q8HR PRN PRN Reason: Constipation Last Admin: 08/23/18 06:32 Dose: 30 ml Documented by: Methylprednisolone Sodium Succinate (Solu-Medrol) 60 mg IV Q12H [facility] Last Admin: 08/23/18 15:35 Dose: 60 mg Documented by: Morphine Sulfate (Morphine) 2 mg IV Q4H PRN PRN Reason: Pain, Moderate (4-6) Last Admin: 08/22/18 05:40 Dose: 2 mg Documented by: Nicotine (Habitrol) 21 mg TD QDAY [facility] Last Admin: 08/23/18 10:45 Dose: 21 mg Documented by: Ondansetron HCl (Zofran) 4 mg IV Q8H PRN PRN Reason: Nausea And Vomiting Sodium Chloride (Sodium Chloride Flush Syringe 10 Ml) 10 ml IV BID [facility] Last Admin: 08/23/18 10:46 Dose: 10 ml Documented by: Sodium Chloride (Sodium Chloride Flush Syringe 10 Ml) 10 ml IV PRN PRN PRN Reason: LINE FLUSH Triamterene/HCTZ (Maxzide-25) 1 each PO QDAY [facility] Last Admin: 08/23/18 10:45 Dose: 1 each Documented by: Review of Systems All systems: negative Physical Examination Vital signs: Vital Signs Temp Pulse Resp BP Pulse Ox 97.9 F 108 H 20 178/97 89 08/21/18 00:04 08/21/18 00:04 08/21/18 00:04 08/21/18 00:04 08/21/18 00:04 General appearance: alert, appears uncomfortable, other (Bilateral wheezing.) Eyes: non-icteric ENT: oropharynx moist Neck: supple, no JVD Ascultation: Bilateral: wheezes, rhonchi Cardiovascular: regular rate and rhythm Gastrointestinal: normoactive bowel sounds, soft, non-tender Integumentary: normal Extremities: no cyanosis, no edema Musculoskeletal: no deformities Gait: normal gait normal mental status, non-focal exam, pupils equal and round, CN II-XII normal depressed Results - Laboratory Findings CBC and BMP: 08/22/18 05:08 08/22/18 05:08 ABG POC ABG pH 7.412 (7.35-7.45) 08/21/18 09:07 POC ABG pCO2 35.4 (35-45) 08/21/18 09:07 POC ABG pO2 56 (80-105) L 08/21/18 09:07 POC ABG HCO3 22.5 08/21/18 09:07 POC ABG Total CO2 24 08/21/18 09:07 POC ABG O2 Sat 89 08/21/18 09:07 PT/INR, D-dimer D-Dimer 248.45 ng/mlDDU (0-234) H 08/21/18 05:50 Abnormal lab findings: Abnormal Labs 08/21/18 08/21/18 08/21/18 03:05 03:05 05:50 WBC 17.9 H RBC 5.45 H MCV 73 L MCH 22 L RDW 18.6 H Seg Neuts % (Manual) 96.0 H Lymphocytes % (Manual) 2.0 L Seg Neutrophils # Man 17.2 H Lymphocytes # (Manual) 0.4 L D-Dimer POC ABG pO2 Sodium 135 L Chloride 95.8 L Glucose 270 H POC Glucose Hemoglobin A1c Lactic Acid 2.50 H* Ur Specific [place] 08/21/18 08/21/18 08/21/18 05:50 06:51 06:51 WBC RBC MCV MCH RDW Seg Neuts % (Manual) Lymphocytes % (Manual) Seg Neutrophils # Man Lymphocytes # (Manual) D-Dimer 248.45 H POC ABG pO2 Sodium Chloride Glucose POC Glucose Hemoglobin A1c Lactic Acid 3.30 H* Ur Specific [place] 1.033 H 08/21/18 08/21/18 08/21/18 08:19 08:19 09:07 WBC RBC MCV MCH RDW Seg Neuts % (Manual) Lymphocytes % (Manual) Seg Neutrophils # Man Lymphocytes # (Manual) D-Dimer POC ABG pO2 56 L Sodium Chloride Glucose POC Glucose Hemoglobin A1c 7.5 H Lactic Acid 2.50 H* Ur Specific [place] 08/21/18 08/21/18 08/21/18 10:51 11:22 16:31 WBC RBC MCV MCH RDW Seg Neuts % (Manual) Lymphocytes % (Manual) Seg Neutrophils # Man Lymphocytes # (Manual) D-Dimer POC ABG pO2 Sodium Chloride Glucose POC Glucose 250 H 167 H Hemoglobin A1c Lactic Acid 4.00 H* Ur Specific [place] 08/21/18 08/22/18 08/22/18 22:06 05:08 05:08 WBC 18.4 H RBC 5.15 H MCV 71 L MCH 22 L RDW 18.7 H Seg Neuts % (Manual) 91.0 H Lymphocytes % (Manual) 4.0 L Seg Neutrophils # Man 16.7 H Lymphocytes # (Manual) 0.7 L D-Dimer POC ABG pO2 Sodium Chloride Glucose 196 H POC Glucose 248 H Hemoglobin A1c Lactic Acid Ur Specific [place] 08/22/18 08/22/18 08/22/18 08:41 11:28 16:35 WBC RBC MCV MCH RDW Seg Neuts % (Manual) Lymphocytes % (Manual) Seg Neutrophils # Man Lymphocytes # (Manual) D-Dimer POC ABG pO2 Sodium Chloride Glucose POC Glucose 168 H 247 H 193 H Hemoglobin A1c Lactic Acid Ur Specific [place] 08/22/18 08/23/18 08/23/18 21:48 10:46 17:30 WBC RBC MCV MCH RDW Seg Neuts % (Manual) Lymphocytes % (Manual) Seg Neutrophils # Man Lymphocytes # (Manual) D-Dimer POC ABG pO2 Sodium Chloride Glucose POC Glucose 281 H 231 H 174 H Hemoglobin A1c Lactic Acid Ur Specific [place] - Diagnostic Findings Chest x-ray: report reviewed (PATCHY LEFT LOWER LOBE AIR SPACE DISEASE.), image reviewed Assessment and Plan Patient is a 48-year-old -[place] female who presents to the ED with known past medical history of asthma chronic prednisone however noncompliance also history of hypertension has not been taking her pain medication. She presents to the ED with complaints of shortness of breath which started a few days prior to presentation. She denied getting a flu shot last year. She initially felt that this was asthma coming back well fortunately did not have any of her medications to treat this. 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 On arrival to the ED she was noted to have a saturation of 89% with tachypnea at 22 and tachycardia at 113 with imaging studies concerning for possible pneumonia. The patient reports that she's been having some fullness and pressure for sinus a few days prior to this. Patient having diffuse bilateral wheezing. O2 saturation 97% on 1 1/2 litres O2. Patient smokes 1/2 a pack a day for 20 years. Counseled to stop smoking. Denies alcohol or drug abuse. and has 3 children. 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 Chest xray reported patchy air space disease left lower lobe. CTA of chest bilateral multifocal infiltrates. No PE reported. - Patient Problems (1) History of asthma Current Visit: No Status: Acute Plan to address problem: O2 2 litres via nasal canula. Albuterol/atrovent aerosol treatments q 6 hours. Continue solumedrol and increase dose 100 mg I/V q 8 hours. Continue S/C heparin. Continue Levaquin Recommend famotidine. (2) Community acquired pneumonia of left lower lobe of lung Current Visit: Yes Status: Acute Plan to address problem: Patient is on I/V levaquin.
[2018-08-23] MEDS: LANTUS SUB-Q SCH (22:07)
[2018-08-23] MEDS: AMBIEN PO PRN (23:30)
[2018-08-24] MEDS: TESSALON PERLES PO SCH ×3 (05:01→21:26)
[2018-08-24] MEDS: SOLU-Medrol IV SCH ×3 (05:01→23:28)
[2018-08-24] MEDS: SODIUM CHLORIDE FLUSH SYRINGE 10 ML IV SCH ×3 (05:02→21:32)
[2018-08-24 06:33] LABS: Hematocrit 36.5 % (30.3-42.9); Hemoglobin 11.3 gm/dl (10.1-14.3); Mean Corpuscular HGB Conc 31 % (30-34); Mean Corpuscular Volume 71 fl (79-97); Platelet Count 314 K/mm3 (140-440); Red Blood Count 5.15 M/mm3 (3.65-5.03)
[2018-08-24 07:00] LABS: BUN/Creatinine Ratio 18; Blood Urea Nitrogen 14 mg/dL (7-17); Calcium 9.3 mg/dL (8.4-10.2); Hemolysis Index 1
[2018-08-24] MEDS: BROVANA NEBU IH SCH ×2 (08:09→20:56)
[2018-08-24] MEDS: DUONEB *Not for PRN Use IH SCH ×3 (08:09→20:56)
[2018-08-24] MEDS: PULMICORT IH SCH ×2 (08:09→20:56)
[2018-08-24] MEDS: HumaLOG SUB-Q SCH ×4 (08:58→21:43)
[2018-08-24] MEDS: COLACE PO SCH ×2 (11:23→21:26)
[2018-08-24] MEDS: HEPARIN SUB-Q SCH ×2 (11:23→21:26)
[2018-08-24] MEDS: HABITROL TD SCH (11:23)
[2018-08-24] MEDS: MAXZIDE-25 PO SCH (11:23)
[2018-08-24] MEDS: LEVAQUIN 750MG/150ML 750 MG/150 ML BAG IV SCH (11:23)
[2018-08-24] MEDS: APRESOLINE IV PRN (17:39)
--- NOTE | 2018-08-24 18:11 | Progress Note ---
Assessment and Plan Assessment and plan: 48-year-old -[place] female with past medical history significant for asthma, COPD, active smoker presented to the emergency Department with complaints of worsening cough or fevers. Asthma/COPD exacerbation - Agent is on IV Solu-Medrol, nebulizer, oxygen support, antibiotic BiPAP as needed - The plan was to discharge but pulmonary saw her and recommend to keep her another day, Thursday he increase the dose of Solu-Medrol from 100 mg IV 4 times a day Hypertension - patient is on maxzide - controlled Diabetes mellitus - Hemoglobin A1c is 7.5 - Sliding-scale insulin and basal insulin DVT prophylaxis - Heparin History Interval history: Patient was seen and evaluated this morning, patient is complaining of shortness of breath. Patient qualified for home oxygen. Hospitalist Physical - Physical exam Narrative exam: Patient is in cardiopulmonary distress. The patient appeared well nourished and normally developed. Vital signs as documented. Head exam is unremarkable. No scleral icterus . Neck is without jugular venous distension, thyromegaly, or carotid bruits. Lungs wheezing all over the chest. Cardiac exam reveals regular rate and Rhythm. Abdominal exam reveals normal bowel sounds. Extremities are nonedematous and both femoral and pedal pulses are normal. [employer]CEMENT [employer]LECTION AGENT: Alert and oriented 3. No focal weakness. - Constitutional Vitals: Temp Pulse Resp BP Pulse Ox 99.2 F 99 H 20 168/107 90 08/24/18 12:27 08/24/18 14:36 08/24/18 14:36 08/24/18 17:39 08/24/18 12:27 Results - Labs CBC & Chem 7: 08/24/18 05:44 08/24/18 05:44 Labs: Laboratory Last Values WBC 17.5 K/mm3 (4.5-11.0) H 08/24/18 05:44 RBC 5.15 M/mm3 (3.65-5.03) H 08/24/18 05:44 Hgb 11.3 gm/dl (10.1-14.3) 08/24/18 05:44 Hct 36.5 % (30.3-42.9) 08/24/18 05:44 MCV 71 fl (79-97) L 08/24/18 05:44 MCH 22 pg (28-32) L 08/24/18 05:44 MCHC 31 % (30-34) 08/24/18 05:44 RDW 18.0 % (13.2-15.2) H 08/24/18 05:44 Plt Count 314 K/mm3 (140-440) 08/24/18 05:44 Add Manual Diff Complete 08/22/18 05:08 Total Counted 100 08/22/18 05:08 Seg Neutrophils % Salvage Clerk 08/22/18 05:08 Seg Neuts % (Manual) 91.0 % (40.0-70.0) H 08/22/18 05:08 Band Neutrophils % 4.0 % 08/22/18 05:08 Lymphocytes % (Manual) 4.0 % (13.4-35.0) L 08/22/18 05:08 Reactive Lymphs % (Man) 0 % 08/22/18 05:08 Monocytes % (Manual) 1.0 % (0.0-7.3) 08/22/18 05:08 Eosinophils % (Manual) 0 % (0.0-4.3) 08/22/18 05:08 Basophils % (Manual) 0 % (0.0-1.8) 08/22/18 05:08 Metamyelocytes % 0 % 08/22/18 05:08 Myelocytes % 0 % 08/22/18 05:08 Promyelocytes % 0 % 08/22/18 05:08 Blast Cells % 0 % 08/22/18 05:08 Nucleated RBC % Not Reportable 08/22/18 05:08 Seg Neutrophils # Man 16.7 K/mm3 (1.8-7.7) H 08/22/18 05:08 Band Neutrophils # 0.7 K/mm3 08/22/18 05:08 Lymphocytes # (Manual) 0.7 K/mm3 (1.2-5.4) L 08/22/18 05:08 Abs React Lymphs (Man) 0.0 K/mm3 08/22/18 05:08 Monocytes # (Manual) 0.2 K/mm3 (0.0-0.8) 08/22/18 05:08 Eosinophils # (Manual) 0.0 K/mm3 (0.0-0.4) 08/22/18 05:08 Basophils # (Manual) 0.0 K/mm3 (0.0-0.1) 08/22/18 05:08 Metamyelocytes # 0.0 K/mm3 08/22/18 05:08 Myelocytes # 0.0 K/mm3 08/22/18 05:08 Promyelocytes # 0.0 K/mm3 08/22/18 05:08 Blast Cells # 0.0 K/mm3 08/22/18 05:08 WBC Morphology Not Reportable 08/22/18 05:08 Hypersegmented Neuts Not Reportable 08/22/18 05:08 Hyposegmented Neuts Not Reportable 08/22/18 05:08 Hypogranular Neuts Not Reportable 08/22/18 05:08 Smudge Cells Not Reportable 08/22/18 05:08 Toxic Granulation Not Reportable 08/22/18 05:08 Toxic Vacuolation Not Reportable 08/22/18 05:08 Dohle Bodies Not Reportable 08/22/18 05:08 Pelger-Huet Anomaly Not Reportable 08/22/18 05:08 Tonja Rods Not Reportable 08/22/18 05:08 Platelet Estimate Consistent w auto 08/22/18 05:08 Clumped Platelets Not Reportable 08/22/18 05:08 Plt Clumps, EDTA Not Reportable 08/22/18 05:08 Large Platelets Not Reportable 08/22/18 05:08 Giant Platelets Not Reportable 08/22/18 05:08 Platelet Satelliting Not Reportable 08/22/18 05:08 Plt Morphology Comment Not Reportable 08/22/18 05:08 RBC Morphology Not Reportable 08/22/18 05:08 Dimorphic RBCs Not Reportable 08/22/18 05:08 Polychromasia Not Reportable 08/22/18 05:08 Hypochromasia Not Reportable 08/22/18 05:08 Poikilocytosis Not Reportable 08/22/18 05:08 Anisocytosis 1+ 08/22/18 05:08 Microcytosis Not Reportable 08/22/18 05:08 Macrocytosis Not Reportable 08/22/18 05:08 Spherocytes Not Reportable 08/22/18 05:08 Pappenheimer Bodies Not Reportable 08/22/18 05:08 Sickle Cells Not Reportable 08/22/18 05:08 Target Cells Not Reportable 08/22/18 05:08 Tear Drop Cells Not Reportable 08/22/18 05:08 Ovalocytes Not Reportable 08/22/18 05:08 Helmet Cells Not Reportable 08/22/18 05:08 [place] Bodies Not Reportable 08/22/18 05:08 [place] Rings Not Reportable 08/22/18 05:08 Woody Cells Not Reportable 08/22/18 05:08 Bite Cells Not Reportable 08/22/18 05:08 Crenated Cell Not Reportable 08/22/18 05:08 Elliptocytes Few 08/22/18 05:08 Acanthocytes (Spur) Not Reportable 08/22/18 05:08 Rouleaux Not Reportable 08/22/18 05:08 Hemoglobin C Crystals Not Reportable 08/22/18 05:08 Schistocytes Not Reportable 08/22/18 05:08 Malaria parasites Not Reportable 08/22/18 05:08 Shukri Bodies Not Reportable 08/22/18 05:08 Hem Pathologist Commnt No 08/22/18 05:08 D-Dimer 248.45 ng/mlDDU (0-234) H 08/21/18 05:50 POC ABG pH 7.412 (7.35-7.45) 08/21/18 09:07 POC ABG pCO2 35.4 (35-45) 08/21/18 09:07 POC ABG pO2 56 (80-105) L 08/21/18 09:07 POC ABG HCO3 22.5 08/21/18 09:07 POC ABG Total CO2 24 08/21/18 09:07 POC ABG O2 Sat 89 08/21/18 09:07 POC ABG Base Excess -2 08/21/18 09:07 FiO2 21 % 08/21/18 09:07 Sodium 136 mmol/L (137-145) L 08/24/18 05:44 Potassium 4.0 mmol/L (3.6-5.0) 08/24/18 05:44 Chloride 95.3 mmol/L (98-107) L 08/24/18 05:44 Carbon Dioxide 30 mmol/L (22-30) 08/24/18 05:44 Anion Gap 15 mmol/L 08/24/18 05:44 BUN 14 mg/dL (7-17) 08/24/18 05:44 Creatinine 0.8 mg/dL (0.7-1.2) 08/24/18 05:44 Estimated GFR > 60 ml/min 08/24/18 05:44 BUN/Creatinine Ratio 18 % 08/24/18 05:44 Glucose 139 mg/dL (65-100) H 08/24/18 05:44 POC Glucose 195 (70-105) H 08/24/18 17:05 Hemoglobin A1c 7.5 % (4-6) H 08/21/18 08:19 Lactic Acid 1.00 mmol/L (0.7-2.0) 08/22/18 05:08 Calcium 9.3 mg/dL (8.4-10.2) 08/24/18 05:44 Total Bilirubin 0.20 mg/dL (0.1-1.2) 08/21/18 03:05 AST 11 units/L (5-40) 08/21/18 03:05 ALT 16 units/L (7-56) 08/21/18 03:05 Alkaline Phosphatase 79 units/L (35-129) 08/21/18 03:05 Total Protein 7.5 g/dL (6.3-8.2) 08/21/18 03:05 Albumin 4.5 g/dL (3.9-5) 08/21/18 03:05 Albumin/Globulin Ratio 1.5 % 08/21/18 03:05 TSH 0.411 mlU/mL (0.270-4.200) 08/21/18 03:05 Free T4 1.27 ng/dL (0.76-1.46) 08/21/18 03:05 Free T3 Index 1.8 pg/mL (2.3-4.2) L 08/21/18 03:05 HCG, Qual Negative (Negative) 08/21/18 03:05 Urine Color Straw (Yellow) 08/21/18 06:51 Urine Turbidity Turbid (Clear) 08/21/18 06:51 Urine pH 5.0 (5.0-7.0) 08/21/18 06:51 Ur Specific [place] 1.033 (1.003-1.030) H 08/21/18 06:51 Urine Protein <15 mg/dl mg/dL (Negative) 08/21/18 06:51 Urine Glucose (UA) >=500 mg/dL (Negative) 08/21/18 06:51 Urine Ketones Tr mg/dL (Negative) 08/21/18 06:51 Urine Blood Sm (Negative) 08/21/18 06:51 Urine Nitrite Neg (Negative) 08/21/18 06:51 Urine Bilirubin Neg (Negative) 08/21/18 06:51 Urine Urobilinogen < 2.0 mg/dL (<2.0) 08/21/18 06:51 Ur Leukocyte Esterase Neg (Negative) 08/21/18 06:51 Urine WBC (Auto) 4.0 /HPF (0.0-6.0) 08/21/18 06:51 Urine RBC (Auto) 6.0 /HPF (0.0-6.0) 08/21/18 06:51 U Epithel Cells (Auto) 2.0 /HPF (0-13.0) 08/21/18 06:51 Urine Mucus Few /HPF 08/21/18 06:51 Blood Type A POSITIVE 08/21/18 05:50 Antibody Screen Negative 08/21/18 05:50
--- NOTE | 2018-08-24 20:12 | Progress Note ---
Assessment and Plan Patient is a 48-year-old -[place] female who presents to the ED with known past medical history of asthma chronic prednisone however noncompliance also history of hypertension has not been taking her pain medication. She presents to the ED with complaints of shortness of breath which started a few days prior to presentation. She denied getting a flu shot last year. She initially felt that this was asthma coming back well fortunately did not have any of her medications to treat this. She has clients who was sick recently w ith cold and had been started on antibiotics. On arrival to the ED she was noted to have a saturation of 89% with tachypnea at 22 and tachycardia at 113 with imaging studies concerning for possible pneumonia. The patient reports that she's been having some fullness and pressure for sinus a few days prior to this. Patient having diffuse bilateral wheezing. O2 saturation 97% on 1 1/2 litres O2. Patient smokes 1/2 a pack a day for 20 years. Counseled to stop smoking. Denies alcohol or drug abuse. and has 3 children. 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 Chest xray reported patchy air space disease left lower lobe. CTA of chest bilateral multifocal infiltrates. No PE reported. 08/24/18 Patient still complaining wheezing, shortness of breath and cough.O2 saturation 98% on 1.5 litres O2.Patient running low grade temp. Blood pressure running slightly high. - Patient Problems (1) History of asthma Current Visit: No Status: Acute Plan to address problem: O2 2 litres via nasal canula. Albuterol/atrovent aerosol treatments q 6 hours. Continue solumedrol and increase dose 100 mg I/V q 8 hours. Continue S/C heparin. Continue Levaquin Recommend famotidine. (2) Community acquired pneumonia of left lower lobe of lung Current Visit: Yes Status: Acute Plan to address problem: Patient is on I/V levaquin. Subjective Date of service: 08/24/18 Interval history: Patient still complaining wheezing, shortness of breath and cough.O2 saturation 98% on 1.5 litres O2.Patient running low grade temp. Blood pressure running slightly high. Objective Vital Signs - 12hr 08/24/18 08/24/18 08/24/18 10:00 12:27 14:17 Temperature 99.2 F Pulse Rate 112 H Pulse Rate [ 120 H Bilateral Throughout] Respiratory 22 Rate Respiratory 20 Rate [Bilateral Throughout] Blood Pressure 170/102 O2 Sat by Pulse 93 90 Oximetry 08/24/18 08/24/18 08/24/18 14:36 17:01 17:39 Temperature 99.0 F Pulse Rate 94 H Pulse Rate [ 99 H Bilateral Throughout] Respiratory 22 Rate Respiratory 20 Rate [Bilateral Throughout] Blood Pressure 168/107 168/107 O2 Sat by Pulse 95 Oximetry Constitutional: alert, appears uncomfortable, other (Bilateral wheezing.) Eyes: non-icteric ENT: oropharynx moist Neck: supple, no JVD Ascultation: Bilateral: wheezes, rhonchi Cardiovascular: regular rate and rhythm Gastrointestinal: normoactive bowel sounds, soft, non-tender Integumentary: normal Extremities: no cyanosis, no edema Neurologic: normal mental status, non-focal exam, pupils equal and round, CN II- XII normal Psychiatric: depressed CBC and BMP: 08/24/18 05:44 08/24/18 05:44 ABG, PT/INR, D-dimer: ABG POC ABG pH 7.412 (7.35-7.45) 08/21/18 09:07 POC ABG pCO2 35.4 (35-45) 08/21/18 09:07 POC ABG pO2 56 (80-105) L 08/21/18 09:07 POC ABG HCO3 22.5 08/21/18 09:07 POC ABG Total CO2 24 08/21/18 09:07 POC ABG O2 Sat 89 08/21/18 09:07 PT/INR, D-dimer D-Dimer 248.45 ng/mlDDU (0-234) H 08/21/18 05:50 Abnormal lab findings: Abnormal Labs 08/21/18 08/21/18 08/21/18 03:05 03:05 03:05 WBC 17.9 H RBC 5.45 H MCV 73 L MCH 22 L RDW 18.6 H Seg Neuts % (Manual) 96.0 H Lymphocytes % (Manual) 2.0 L Seg Neutrophils # Man 17.2 H Lymphocytes # (Manual) 0.4 L D-Dimer POC ABG pO2 Sodium 135 L Chloride 95.8 L Glucose 270 H POC Glucose Hemoglobin A1c Lactic Acid Free T3 Index 1.8 L Ur Specific [place] 08/21/18 08/21/18 08/21/18 05:50 05:50 06:51 WBC RBC MCV MCH RDW Seg Neuts % (Manual) Lymphocytes % (Manual) Seg Neutrophils # Man Lymphocytes # (Manual) D-Dimer 248.45 H POC ABG pO2 Sodium Chloride Glucose POC Glucose Hemoglobin A1c Lactic Acid 2.50 H* Free T3 Index Ur Specific [place] 1.033 H 08/21/18 08/21/18 08/21/18 06:51 08:19 08:19 WBC RBC MCV MCH RDW Seg Neuts % (Manual) Lymphocytes % (Manual) Seg Neutrophils # Man Lymphocytes # (Manual) D-Dimer POC ABG pO2 Sodium Chloride Glucose POC Glucose Hemoglobin A1c 7.5 H Lactic Acid 3.30 H* 2.50 H* Free T3 Index Ur Specific [place] 08/21/18 08/21/18 08/21/18 09:07 10:51 11:22 WBC RBC MCV MCH RDW Seg Neuts % (Manual) Lymphocytes % (Manual) Seg Neutrophils # Man Lymphocytes # (Manual) D-Dimer POC ABG pO2 56 L Sodium Chloride Glucose POC Glucose 250 H Hemoglobin A1c Lactic Acid 4.00 H* Free T3 Index Ur Specific [place] 08/21/18 08/21/18 08/22/18 16:31 22:06 05:08 WBC 18.4 H RBC 5.15 H MCV 71 L MCH 22 L RDW 18.7 H Seg Neuts % (Manual) 91.0 H Lymphocytes % (Manual) 4.0 L Seg Neutrophils # Man 16.7 H Lymphocytes # (Manual) 0.7 L D-Dimer POC ABG pO2 Sodium Chloride Glucose POC Glucose 167 H 248 H Hemoglobin A1c Lactic Acid Free T3 Index Ur Specific [place] 08/22/18 08/22/18 08/22/18 05:08 08:41 11:28 WBC RBC MCV MCH RDW Seg Neuts % (Manual) Lymphocytes % (Manual) Seg Neutrophils # Man Lymphocytes # (Manual) D-Dimer POC ABG pO2 Sodium Chloride Glucose 196 H POC Glucose 168 H 247 H Hemoglobin A1c Lactic Acid Free T3 Index Ur Specific [place] 08/22/18 08/22/18 08/23/18 16:35 21:48 10:46 WBC RBC MCV MCH RDW Seg Neuts % (Manual) Lymphocytes % (Manual) Seg Neutrophils # Man Lymphocytes # (Manual) D-Dimer POC ABG pO2 Sodium Chloride Glucose POC Glucose 193 H 281 H 231 H Hemoglobin A1c Lactic Acid Free T3 Index Ur Specific [place] 08/23/18 08/23/18 08/24/18 17:30 21:47 05:44 WBC 17.5 H RBC 5.15 H MCV 71 L MCH 22 L RDW 18.0 H Seg Neuts % (Manual) Lymphocytes % (Manual) Seg Neutrophils # Man Lymphocytes # (Manual) D-Dimer POC ABG pO2 Sodium Chloride Glucose POC Glucose 174 H 259 H Hemoglobin A1c Lactic Acid Free T3 Index Ur Specific [place] 08/24/18 08/24/18 08/24/18 05:44 08:38 12:30 WBC RBC MCV MCH RDW Seg Neuts % (Manual) Lymphocytes % (Manual) Seg Neutrophils # Man Lymphocytes # (Manual) D-Dimer POC ABG pO2 Sodium 136 L Chloride 95.3 L Glucose 139 H POC Glucose 213 H 236 H Hemoglobin A1c Lactic Acid Free T3 Index Ur Specific [place] 08/24/18 17:05 WBC RBC MCV MCH RDW Seg Neuts % (Manual) Lymphocytes % (Manual) Seg Neutrophils # Man Lymphocytes # (Manual) D-Dimer POC ABG pO2 Sodium Chloride Glucose POC Glucose 195 H Hemoglobin A1c Lactic Acid Free T3 Index Ur Specific [place]
[2018-08-24] MEDS: AMBIEN PO PRN (21:26)
[2018-08-24] MEDS: TYLENOL PO PRN (21:26)
[2018-08-24] MEDS: LANTUS SUB-Q SCH (21:31)
[2018-08-25] MEDS: SOLU-Medrol IV SCH ×4 (05:22→23:52)
[2018-08-25] MEDS: TESSALON PERLES PO SCH ×3 (05:22→22:29)
[2018-08-25] MEDS: APRESOLINE IV PRN (05:49)
[2018-08-25] MEDS: TYLENOL PO PRN ×3 (05:52→18:35)
[2018-08-25] MEDS: BROVANA NEBU IH SCH ×2 (08:19→19:33)
[2018-08-25] MEDS: DUONEB *Not for PRN Use IH SCH ×3 (08:19→22:46)
[2018-08-25] MEDS: PULMICORT IH SCH ×2 (08:19→19:33)
[2018-08-25] MEDS: HumaLOG SUB-Q SCH ×4 (09:04→22:30)
[2018-08-25] MEDS ORDERED: MORPHINE IV PRN (10:17)
--- NOTE | 2018-08-25 10:33 | Discharge Summary ---
Providers - Providers Date of Admission: 08/21/18 07:34 Date of discharge: 08/26/18 Attending physician: WES LEROY MD 08/23/18 13:38 Consult to Physician [CONS] Routine Comment: Consulting Provider: SANNA BLACK Physician Instructions: Reason For Exam: asthma exacerbation Primary care physician: OVERCOILER Hospitalization Reason for admission: COPd/asthma exacerbation Condition: Stable Pertinent studies: CTA No saddle pulmonary embolism. Suboptimal opacification of the pulmonary arterial tree compromises more detailed evaluation. Multifocal left greater than right lung airspace disease without effusion or pneumothorax. Hospital course: 48-year-old -[place]ian female with past medical history significant for asthma, COPD, active smoker presented to the emergency Department with complaints of worsening cough and fever. Patient was in respiratory distress and was admitted to the floor and was treated with IV Solu-Medrol, nebulizer, oxygen support, antibiotic BiPAP as needed. Pulmonary consult appreciated. Patient showed some improvement and advised to stop smoking and was given nicotine patch. Appropriate medication scripts were given. Hypertension continue home medications Diabetes mellitus; Hemoglobin A1c is 7.5 and was treated with insulin. Discussed with pulmonary and cleared for discharge. DC with home O2. Patient was hemodynamically stable at the time of discharge. Disposition: DC-01 TO HOME OR SELFCARE Time spent for discharge: 34 minutes - Discharge Diagnoses (1) Community acquired pneumonia of left lower lobe of lung Status: Acute (2) Acute bronchitis Status: Acute (3) History of asthma Status: Acute Core Measure Documentation - Palliative Care Palliative Care/ Comfort Measures: Not Applicable - Core Measures Any of the following diagnoses?: none Exam - Physical Exam Narrative exam: Patient is in cardiopulmonary distress. The patient appeared well nourished and normally developed. Vital signs as documented. Head exam is unremarkable. No scleral icterus . Neck is without jugular venous distension, thyromegaly, or carotid bruits. Lungs wheezing all over the chest. Cardiac exam reveals regular rate and Rhythm. Abdominal exam reveals normal bowel sounds. Extremities are nonedematous and both femoral and pedal pulses are normal. APPRENTICE: Alert and oriented 3. No focal weakness. - Constitutional Vitals: Temp Pulse Resp BP Pulse Ox 97.8 F 118 H 22 165/100 93 08/25/18 05:41 08/25/18 08:45 08/25/18 08:45 08/25/18 05:41 08/25/18 08:19 Plan Activity: no restrictions Weight Bearing Status: Full Weight Bearing Diet: low fat Additional Instructions: F/u at [facility] if no established PCP. Follow up with: PRIMARY CARE, [Primary Care Provider] - 3-5 Days Prescriptions: Albuterol Sulfate [Albuterol 0.63% NEBS] 220 mcg IH Q4-6H #60 vial Arformoterol Nebu [Brovana Nebu] 15 mcg IH Q12HRT #60 ml Budesonide [Pulmicort Respules] 0.5 mg IH Q12HRT #60 nebu Diabetic Supplies,Miscell [Enlite Serter] 1 each MC DAILY #1 miscell Insulin NPH/Regular [NovoLIN 70/30] 20 unit SQ BIDDIAB #1 vial levoFLOXacin [Levaquin] 750 mg PO QDAY #7 tablet Nicotine [Habitrol] 21 mg TD QDAY #14 patch Prednisone [predniSONE 10 mg (6-Day Pack, 21 Tabs)] 10 mg PO .TAPER #1 tab.ds.pk Triamter/Hctz 37.5-25 mg [Maxzide-25] 1 tab PO QDAY #30 tablet
[2018-08-25] MEDS: LEVAQUIN PO SCH (10:36)
[2018-08-25] MEDS: MAXZIDE-25 PO SCH (10:36)
[2018-08-25] MEDS: COLACE PO SCH ×2 (10:36→22:30)
[2018-08-25] MEDS: HABITROL TD SCH (10:36)
[2018-08-25] MEDS: HEPARIN SUB-Q SCH ×2 (10:39→22:30)
--- NOTE | 2018-08-25 11:12 | Progress Note ---
Assessment and Plan Patient still complaining wheezing, shortness of breath and cough.O2 saturation 93% on 2 litres O2.Patient afebrile today. Patient breathing better than yesterday.Blood pressure running slightly high. - Patient Problems (1) History of asthma Current Visit: No Status: Acute Plan to address problem: O2 2 litres via nasal canula. Albuterol/atrovent aerosol treatments q 6 hours. Continue solumedrol and increase dose 100 mg I/V q 8 hours. Continue S/C heparin. Continue Levaquin Recommend famotidine. (2) Community acquired pneumonia of left lower lobe of lung Current Visit: Yes Status: Acute Plan to address problem: Patient is on I/V levaquin. Repeating chest xray tomorrow. Subjective Date of service: 08/25/18 Interval history: Patient still complaining wheezing, shortness of breath and cough.O2 saturation 93% on 2 litres O2.Patient afebrile today. Patient breathing better than yesterday.Blood pressure running slightly high. Objective Vital Signs - 12hr 08/25/18 08/25/18 08/25/18 00:12 05:41 05:52 Temperature 99.2 F 97.8 F Pulse Rate 113 H 97 H Pulse Rate [ Bilateral Throughout] Respiratory 20 20 18 Rate Respiratory Rate [Bilateral Throughout] Blood Pressure 151/91 165/100 O2 Sat by Pulse 89 92 Oximetry 08/25/18 08/25/18 08/25/18 06:52 08:19 08:45 Temperature Pulse Rate Pulse Rate [ 116 H 118 H Bilateral Throughout] Respiratory 18 Rate Respiratory 22 22 Rate [Bilateral Throughout] Blood Pressure O2 Sat by Pulse 93 Oximetry Constitutional: no acute distress, alert, other (Bilateral wheezing.) Eyes: non-icteric ENT: oropharynx moist Neck: supple, no JVD Ascultation: Bilateral: wheezes, rhonchi Cardiovascular: regular rate and rhythm Gastrointestinal: normoactive bowel sounds, soft, non-tender Integumentary: normal Extremities: no cyanosis, no edema Neurologic: normal mental status, non-focal exam, pupils equal and round, CN II- XII normal Psychiatric: depressed CBC and BMP: 08/24/18 05:44 08/24/18 05:44 ABG, PT/INR, D-dimer: ABG POC ABG pH 7.412 (7.35-7.45) 08/21/18 09:07 POC ABG pCO2 35.4 (35-45) 08/21/18 09:07 POC ABG pO2 56 (80-105) L 08/21/18 09:07 POC ABG HCO3 22.5 08/21/18 09:07 POC ABG Total CO2 24 08/21/18 09:07 POC ABG O2 Sat 89 08/21/18 09:07 PT/INR, D-dimer D-Dimer 248.45 ng/mlDDU (0-234) H 08/21/18 05:50 Abnormal lab findings: Abnormal Labs 08/21/18 08/21/18 08/21/18 03:05 03:05 03:05 WBC 17.9 H RBC 5.45 H MCV 73 L MCH 22 L RDW 18.6 H Seg Neuts % (Manual) 96.0 H Lymphocytes % (Manual) 2.0 L Seg Neutrophils # Man 17.2 H Lymphocytes # (Manual) 0.4 L D-Dimer POC ABG pO2 Sodium 135 L Chloride 95.8 L Glucose 270 H POC Glucose Hemoglobin A1c Lactic Acid Free T3 Index 1.8 L Ur Specific [place] 08/21/18 08/21/18 08/21/18 05:50 05:50 06:51 WBC RBC MCV MCH RDW Seg Neuts % (Manual) Lymphocytes % (Manual) Seg Neutrophils # Man Lymphocytes # (Manual) D-Dimer 248.45 H POC ABG pO2 Sodium Chloride Glucose POC Glucose Hemoglobin A1c Lactic Acid 2.50 H* Free T3 Index Ur Specific [place] 1.033 H 08/21/18 08/21/18 08/21/18 06:51 08:19 08:19 WBC RBC MCV MCH RDW Seg Neuts % (Manual) Lymphocytes % (Manual) Seg Neutrophils # Man Lymphocytes # (Manual) D-Dimer POC ABG pO2 Sodium Chloride Glucose POC Glucose Hemoglobin A1c 7.5 H Lactic Acid 3.30 H* 2.50 H* Free T3 Index Ur Specific [place] 08/21/18 08/21/18 08/21/18 09:07 10:51 11:22 WBC RBC MCV MCH RDW Seg Neuts % (Manual) Lymphocytes % (Manual) Seg Neutrophils # Man Lymphocytes # (Manual) D-Dimer POC ABG pO2 56 L Sodium Chloride Glucose POC Glucose 250 H Hemoglobin A1c Lactic Acid 4.00 H* Free T3 Index Ur Specific [place] 08/21/18 08/21/18 08/22/18 16:31 22:06 05:08 WBC 18.4 H RBC 5.15 H MCV 71 L MCH 22 L RDW 18.7 H Seg Neuts % (Manual) 91.0 H Lymphocytes % (Manual) 4.0 L Seg Neutrophils # Man 16.7 H Lymphocytes # (Manual) 0.7 L D-Dimer POC ABG pO2 Sodium Chloride Glucose POC Glucose 167 H 248 H Hemoglobin A1c Lactic Acid Free T3 Index Ur Specific [place] 08/22/18 08/22/18 08/22/18 05:08 08:41 11:28 WBC RBC MCV MCH RDW Seg Neuts % (Manual) Lymphocytes % (Manual) Seg Neutrophils # Man Lymphocytes # (Manual) D-Dimer POC ABG pO2 Sodium Chloride Glucose 196 H POC Glucose 168 H 247 H Hemoglobin A1c Lactic Acid Free T3 Index Ur Specific [place] 08/22/18 08/22/18 08/23/18 16:35 21:48 10:46 WBC RBC MCV MCH RDW Seg Neuts % (Manual) Lymphocytes % (Manual) Seg Neutrophils # Man Lymphocytes # (Manual) D-Dimer POC ABG pO2 Sodium Chloride Glucose POC Glucose 193 H 281 H 231 H Hemoglobin A1c Lactic Acid Free T3 Index Ur Specific [place] 08/23/18 08/23/18 08/24/18 17:30 21:47 05:44 WBC 17.5 H RBC 5.15 H MCV 71 L MCH 22 L RDW 18.0 H Seg Neuts % (Manual) Lymphocytes % (Manual) Seg Neutrophils # Man Lymphocytes # (Manual) D-Dimer POC ABG pO2 Sodium Chloride Glucose POC Glucose 174 H 259 H Hemoglobin A1c Lactic Acid Free T3 Index Ur Specific [place] 08/24/18 08/24/18 08/24/18 05:44 08:38 12:30 WBC RBC MCV MCH RDW Seg Neuts % (Manual) Lymphocytes % (Manual) Seg Neutrophils # Man Lymphocytes # (Manual) D-Dimer POC ABG pO2 Sodium 136 L Chloride 95.3 L Glucose 139 H POC Glucose 213 H 236 H Hemoglobin A1c Lactic Acid Free T3 Index Ur Specific [place] 08/24/18 08/24/18 08/25/18 17:05 21:34 08:31 WBC RBC MCV MCH RDW Seg Neuts % (Manual) Lymphocytes % (Manual) Seg Neutrophils # Man Lymphocytes # (Manual) D-Dimer POC ABG pO2 Sodium Chloride Glucose POC Glucose 195 H 305 H 234 H Hemoglobin A1c Lactic Acid Free T3 Index Ur Specific [place]
[2018-08-25] MEDS: XOPENEX IH SCH (15:17)
--- NOTE | 2018-08-25 15:50 | Progress Note ---
Assessment and Plan Assessment and plan: 48-year-old -[place] female with past medical history significant for asthma, COPD, active smoker presented to the emergency Department with complaints of worsening cough or fevers. Asthma/COPD exacerbation - Agent is on IV Solu-Medrol, nebulizer, oxygen support, antibiotic BiPAP as needed - Pulmonary consult appreciated Hypertension - patient is on maxzide - controlled Diabetes mellitus - Hemoglobin A1c is 7.5 - Sliding-scale insulin and basal insulin DVT prophylaxis - Heparin History Interval history: Patient was seen and evaluated this morning, patient is complaining of shortness of breath. Hospitalist Physical - Physical exam Narrative exam: Patient is in cardiopulmonary distress. The patient appeared well nourished and normally developed. Vital signs as documented. Head exam is unremarkable. No scleral icterus . Neck is without jugular venous distension, thyromegaly, or carotid bruits. Lungs wheezing all over the chest. Cardiac exam reveals regular rate and Rhythm. Abdominal exam reveals normal bowel sounds. Extremities are nonedematous and both femoral and pedal pulses are normal. 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 No focal weakness. - Constitutional Vitals: Temp Pulse Resp BP Pulse Ox 98.1 F 126 H 20 144/90 93 08/25/18 12:35 08/25/18 15:33 08/25/18 15:33 08/25/18 12:35 08/25/18 14:09 Results - Labs CBC & Chem 7: 08/24/18 05:44 08/24/18 05:44 Labs: Laboratory Last Values WBC 17.5 K/mm3 (4.5-11.0) H 08/24/18 05:44 RBC 5.15 M/mm3 (3.65-5.03) H 08/24/18 05:44 Hgb 11.3 gm/dl (10.1-14.3) 08/24/18 05:44 Hct 36.5 % (30.3-42.9) 08/24/18 05:44 MCV 71 fl (79-97) L 08/24/18 05:44 MCH 22 pg (28-32) L 08/24/18 05:44 MCHC 31 % (30-34) 08/24/18 05:44 RDW 18.0 % (13.2-15.2) H 08/24/18 05:44 Plt Count 314 K/mm3 (140-440) 08/24/18 05:44 Add Manual Diff Complete 08/22/18 05:08 Total Counted 100 08/22/18 05:08 Seg Neutrophils % Operations Lieutenant 08/22/18 05:08 Seg Neuts % (Manual) 91.0 % (40.0-70.0) H 08/22/18 05:08 Band Neutrophils % 4.0 % 08/22/18 05:08 Lymphocytes % (Manual) 4.0 % (13.4-35.0) L 08/22/18 05:08 Reactive Lymphs % (Man) 0 % 08/22/18 05:08 Monocytes % (Manual) 1.0 % (0.0-7.3) 08/22/18 05:08 Eosinophils % (Manual) 0 % (0.0-4.3) 08/22/18 05:08 Basophils % (Manual) 0 % (0.0-1.8) 08/22/18 05:08 Metamyelocytes % 0 % 08/22/18 05:08 Myelocytes % 0 % 08/22/18 05:08 Promyelocytes % 0 % 08/22/18 05:08 Blast Cells % 0 % 08/22/18 05:08 Nucleated RBC % Not Reportable 08/22/18 05:08 Seg Neutrophils # Man 16.7 K/mm3 (1.8-7.7) H 08/22/18 05:08 Band Neutrophils # 0.7 K/mm3 08/22/18 05:08 Lymphocytes # (Manual) 0.7 K/mm3 (1.2-5.4) L 08/22/18 05:08 Abs React Lymphs (Man) 0.0 K/mm3 08/22/18 05:08 Monocytes # (Manual) 0.2 K/mm3 (0.0-0.8) 08/22/18 05:08 Eosinophils # (Manual) 0.0 K/mm3 (0.0-0.4) 08/22/18 05:08 Basophils # (Manual) 0.0 K/mm3 (0.0-0.1) 08/22/18 05:08 Metamyelocytes # 0.0 K/mm3 08/22/18 05:08 Myelocytes # 0.0 K/mm3 08/22/18 05:08 Promyelocytes # 0.0 K/mm3 08/22/18 05:08 Blast Cells # 0.0 K/mm3 08/22/18 05:08 WBC Morphology Not Reportable 08/22/18 05:08 Hypersegmented Neuts Not Reportable 08/22/18 05:08 Hyposegmented Neuts Not Reportable 08/22/18 05:08 Hypogranular Neuts Not Reportable 08/22/18 05:08 Smudge Cells Not Reportable 08/22/18 05:08 Toxic Granulation Not Reportable 08/22/18 05:08 Toxic Vacuolation Not Reportable 08/22/18 05:08 Dohle Bodies Not Reportable 08/22/18 05:08 Pelger-Huet Anomaly Not Reportable 08/22/18 05:08 Tonja Rods Not Reportable 08/22/18 05:08 Platelet Estimate Consistent w auto 08/22/18 05:08 Clumped Platelets Not Reportable 08/22/18 05:08 Plt Clumps, EDTA Not Reportable 08/22/18 05:08 Large Platelets Not Reportable 08/22/18 05:08 Giant Platelets Not Reportable 08/22/18 05:08 Platelet Satelliting Not Reportable 08/22/18 05:08 Plt Morphology Comment Not Reportable 08/22/18 05:08 RBC Morphology Not Reportable 08/22/18 05:08 Dimorphic RBCs Not Reportable 08/22/18 05:08 Polychromasia Not Reportable 08/22/18 05:08 Hypochromasia Not Reportable 08/22/18 05:08 Poikilocytosis Not Reportable 08/22/18 05:08 Anisocytosis 1+ 08/22/18 05:08 Microcytosis Not Reportable 08/22/18 05:08 Macrocytosis Not Reportable 08/22/18 05:08 Spherocytes Not Reportable 08/22/18 05:08 Pappenheimer Bodies Not Reportable 08/22/18 05:08 Sickle Cells Not Reportable 08/22/18 05:08 Target Cells Not Reportable 08/22/18 05:08 Tear Drop Cells Not Reportable 08/22/18 05:08 Ovalocytes Not Reportable 08/22/18 05:08 Helmet Cells Not Reportable 08/22/18 05:08 [place] Bodies Not Reportable 08/22/18 05:08 [place] Rings Not Reportable 08/22/18 05:08 Woody Cells Not Reportable 08/22/18 05:08 Bite Cells Not Reportable 08/22/18 05:08 Crenated Cell Not Reportable 08/22/18 05:08 Elliptocytes Few 08/22/18 05:08 Acanthocytes (Spur) Not Reportable 08/22/18 05:08 Rouleaux Not Reportable 08/22/18 05:08 Hemoglobin C Crystals Not Reportable 08/22/18 05:08 Schistocytes Not Reportable 08/22/18 05:08 Malaria parasites Not Reportable 08/22/18 05:08 [place]ukri Bodies Not Reportable 08/22/18 05:08 Hem Pathologist Commnt No 08/22/18 05:08 D-Dimer 248.45 ng/mlDDU (0-234) H 08/21/18 05:50 POC ABG pH 7.412 (7.35-7.45) 08/21/18 09:07 POC ABG pCO2 35.4 (35-45) 08/21/18 09:07 POC ABG pO2 56 (80-105) L 08/21/18 09:07 POC ABG HCO3 22.5 08/21/18 09:07 POC ABG Total CO2 24 08/21/18 09:07 POC ABG O2 Sat 89 08/21/18 09:07 POC ABG Base Excess -2 08/21/18 09:07 FiO2 21 % 08/21/18 09:07 Sodium 136 mmol/L (137-145) L 08/24/18 05:44 Potassium 4.0 mmol/L (3.6-5.0) 08/24/18 05:44 Chloride 95.3 mmol/L (98-107) L 08/24/18 05:44 Carbon Dioxide 30 mmol/L (22-30) 08/24/18 05:44 Anion Gap 15 mmol/L 08/24/18 05:44 BUN 14 mg/dL (7-17) 08/24/18 05:44 Creatinine 0.8 mg/dL (0.7-1.2) 08/24/18 05:44 Estimated GFR > 60 ml/min 08/24/18 05:44 BUN/Creatinine Ratio 18 % 08/24/18 05:44 Glucose 139 mg/dL (65-100) H 08/24/18 05:44 POC Glucose 313 (70-105) H 08/25/18 11:15 Hemoglobin A1c 7.5 % (4-6) H 08/21/18 08:19 Lactic Acid 1.00 mmol/L (0.7-2.0) 08/22/18 05:08 Calcium 9.3 mg/dL (8.4-10.2) 08/24/18 05:44 Total Bilirubin 0.20 mg/dL (0.1-1.2) 08/21/18 03:05 AST 11 units/L (5-40) 08/21/18 03:05 ALT 16 units/L (7-56) 08/21/18 03:05 Alkaline Phosphatase 79 units/L (35-129) 08/21/18 03:05 Total Protein 7.5 g/dL (6.3-8.2) 08/21/18 03:05 Albumin 4.5 g/dL (3.9-5) 08/21/18 03:05 Albumin/Globulin Ratio 1.5 % 08/21/18 03:05 TSH 0.411 mlU/mL (0.270-4.200) 08/21/18 03:05 Free T4 1.27 ng/dL (0.76-1.46) 08/21/18 03:05 Free T3 Index 1.8 pg/mL (2.3-4.2) L 08/21/18 03:05 HCG, Qual Negative (Negative) 08/21/18 03:05 Urine Color Straw (Yellow) 08/21/18 06:51 Urine Turbidity Turbid (Clear) 08/21/18 06:51 Urine pH 5.0 (5.0-7.0) 08/21/18 06:51 Ur Specific [place] 1.033 (1.003-1.030) H 08/21/18 06:51 Urine Protein <15 mg/dl mg/dL (Negative) 08/21/18 06:51 Urine Glucose (UA) >=500 mg/dL (Negative) 08/21/18 06:51 Urine Ketones Tr mg/dL (Negative) 08/21/18 06:51 Urine Blood Sm (Negative) 08/21/18 06:51 Urine Nitrite Neg (Negative) 08/21/18 06:51 Urine Bilirubin Neg (Negative) 08/21/18 06:51 Urine Urobilinogen < 2.0 mg/dL (<2.0) 08/21/18 06:51 Ur Leukocyte Esterase Neg (Negative) 08/21/18 06:51 Urine WBC (Auto) 4.0 /HPF (0.0-6.0) 08/21/18 06:51 Urine RBC (Auto) 6.0 /HPF (0.0-6.0) 08/21/18 06:51 U Epithel Cells (Auto) 2.0 /HPF (0-13.0) 08/21/18 06:51 Urine Mucus Few /HPF 08/21/18 06:51 Blood Type A POSITIVE 08/21/18 05:50 Antibody Screen Negative 08/21/18 05:50
[2018-08-25] MEDS: SODIUM CHLORIDE FLUSH SYRINGE 10 ML IV SCH ×2 (18:39→22:30)
[2018-08-25] MEDS: LANTUS SUB-Q SCH (22:29)
[2018-08-25] MEDS: AMBIEN PO PRN (22:29)
[2018-08-26] MEDS: TESSALON PERLES PO SCH (06:13)
[2018-08-26] MEDS: SOLU-Medrol IV SCH (06:13)
[2018-08-26 07:19] LABS: Hematocrit 37.6 % (30.3-42.9); Hemoglobin 11.9 gm/dl (10.1-14.3); Mean Corpuscular HGB Conc 32 % (30-34); Mean Corpuscular Volume 71 fl (79-97); Platelet Count 360 K/mm3 (140-440); Red Blood Count 5.33 M/mm3 (3.65-5.03); Red Cell Distribution Width 18.3 % (13.2-15.2)
[2018-08-26 07:33] LABS: BUN/Creatinine Ratio 25; Blood Urea Nitrogen 20 mg/dL (7-17); Calcium 9.9 mg/dL (8.4-10.2); Hemolysis Index 9
--- NOTE | 2018-08-26 08:07 | XRay Report ---
ROUTINE CHEST, TWO VIEWS: HISTORY: Followup on pneumonia. The trachea, heart, mediastinal contour, lung beltran and bony thorax are unremarkable. Patchy infiltrate in the left lower lung has resolved since 08/21/18. IMPRESSION: Unremarkable chest x-ray.
[2018-08-26] MEDS: PULMICORT IH SCH (08:24)
[2018-08-26] MEDS: XOPENEX IH SCH ×2 (08:24)
[2018-08-26] MEDS: BROVANA NEBU IH SCH (08:24)
[2018-08-26 08:46] LABS: Basophils % (Manual) 0 % (0.0-1.8); Eosinophils % (Manual) 0 % (0.0-4.3); Total Cells Counted 100
[2018-08-26 08:48] LABS: Anisocytosis 1+; Ovalocytes Few; Platelet Estimate Consistent w Auto; Poikilocytosis 1+; Target Cells Few
[2018-08-26] MEDS: HumaLOG SUB-Q SCH (09:22)
[2018-08-26] MEDS: COLACE PO SCH (09:23)
[2018-08-26] MEDS: HABITROL TD SCH (09:23)
[2018-08-26] MEDS: MILK OF MAGNESIA PO PRN (09:23)
[2018-08-26] MEDS: MAXZIDE-25 PO SCH (09:23)
[2018-08-26] MEDS: HEPARIN SUB-Q SCH (09:23)
[2018-08-26] MEDS: LEVAQUIN PO SCH (09:23)
[2018-08-26] MEDS: SODIUM CHLORIDE FLUSH SYRINGE 10 ML IV SCH (09:24)
--- NOTE | 2018-08-26 09:39 | Progress Note ---
Assessment and Plan Asthma/COPD exacerbation Tobacco use disorder Hypertension Diabetes mellitus Nocturnal Hypoxia Right lower lobe pneumonia Sepsis secondary to Pneumonia Non compliance with flu shot last year Morbid obesity Diabetes Mellitus- by A1C criteria- ?new diagnosis HTN- Non compliant with meds due to swelling Chronic Prednisone use Lactic acidosis Secondary Coagulopathy -Continue with bronchodilators -Increase activity and ambulation -Chronic home medications -Needs bronchodilators/ICS on discharge -Steroid taper -Complete antibiotic course -Smoking cessation counseling -Out patient sleep study, in view of nocturnal hypoxia -Discharge planning Subjective Date of service: 08/26/18 Interval history: Patient is seen today for: AE-asthma, dyspnea, tobacco use disorder Seen and examined at bedside; 24hour events reviewed; nursing and respiratory care staff consulted; no adverse overnight events reported to me; No chest pain, some shortness of breath, no wheezing, no cough. Denies any fevers, chill, no abdominal pain, no nausea or vomiting. Objective Vital Signs - 12hr 08/25/18 08/26/18 08/26/18 23:16 05:53 08:24 Temperature 97.8 F 99.3 F Pulse Rate 96 H 95 H Pulse Rate [ 99 H Bilateral Throughout] Respiratory 20 20 Rate Respiratory 18 Rate [Bilateral Throughout] Blood Pressure 153/94 149/89 O2 Sat by Pulse 95 95 Oximetry 08/26/18 08:25 Temperature Pulse Rate Pulse Rate [ Bilateral Throughout] Respiratory Rate Respiratory Rate [Bilateral Throughout] Blood Pressure O2 Sat by Pulse 97 Oximetry Constitutional: no acute distress, alert, other Eyes: non-icteric ENT: oropharynx moist Neck: supple, no JVD Ascultation: Bilateral: diminished breath sounds, rhonchi Cardiovascular: regular rate and rhythm, other (S1,S2) Gastrointestinal: normoactive bowel sounds, soft, non-tender Integumentary: normal Extremities: no cyanosis, no edema Neurologic: normal mental status, non-focal exam, pupils equal and round, CN II- XII normal Psychiatric: depressed CBC and BMP: 08/26/18 06:49 08/26/18 06:49 ABG, PT/INR, D-dimer: ABG POC ABG pH 7.412 (7.35-7.45) 08/21/18 09:07 POC ABG pCO2 35.4 (35-45) 08/21/18 09:07 POC ABG pO2 56 (80-105) L 08/21/18 09:07 POC ABG HCO3 22.5 08/21/18 09:07 POC ABG Total CO2 24 08/21/18 09:07 POC ABG O2 Sat 89 08/21/18 09:07 PT/INR, D-dimer D-Dimer 248.45 ng/mlDDU (0-234) H 08/21/18 05:50 Abnormal lab findings: Abnormal Labs 08/21/18 08/21/18 08/21/18 03:05 03:05 03:05 WBC 17.9 H RBC 5.45 H MCV 73 L MCH 22 L RDW 18.6 H Seg Neuts % (Manual) 96.0 H Lymphocytes % (Manual) 2.0 L Seg Neutrophils # Man 17.2 H Lymphocytes # (Manual) 0.4 L Monocytes # (Manual) D-Dimer POC ABG pO2 Sodium 135 L Chloride 95.8 L Carbon Dioxide BUN Glucose 270 H POC Glucose Hemoglobin A1c Lactic Acid Free T3 Index 1.8 L Ur Specific [place] 08/21/18 08/21/18 08/21/18 05:50 05:50 06:51 WBC RBC MCV MCH RDW Seg Neuts % (Manual) Lymphocytes % (Manual) Seg Neutrophils # Man Lymphocytes # (Manual) Monocytes # (Manual) D-Dimer 248.45 H POC ABG pO2 Sodium Chloride Carbon Dioxide BUN Glucose POC Glucose Hemoglobin A1c Lactic Acid 2.50 H* Free T3 Index Ur Specific [place] 1.033 H 08/21/18 08/21/18 08/21/18 06:51 08:19 08:19 WBC RBC MCV MCH RDW Seg Neuts % (Manual) Lymphocytes % (Manual) Seg Neutrophils # Man Lymphocytes # (Manual) Monocytes # (Manual) D-Dimer POC ABG pO2 Sodium Chloride Carbon Dioxide BUN Glucose POC Glucose Hemoglobin A1c 7.5 H Lactic Acid 3.30 H* 2.50 H* Free T3 Index Ur Specific [place] 08/21/18 08/21/18 08/21/18 09:07 10:51 11:22 WBC RBC MCV MCH RDW Seg Neuts % (Manual) Lymphocytes % (Manual) Seg Neutrophils # Man Lymphocytes # (Manual) Monocytes # (Manual) D-Dimer POC ABG pO2 56 L Sodium Chloride Carbon Dioxide BUN Glucose POC Glucose 250 H Hemoglobin A1c Lactic Acid 4.00 H* Free T3 Index Ur Specific [place] 08/21/18 08/21/1808/22/19 16:31 22:06 05:08 WBC 18.4 H RBC 5.15 H MCV 71 L MCH 22 L RDW 18.7 H Seg Neuts % (Manual) 91.0 H Lymphocytes % (Manual) 4.0 L Seg Neutrophils # Man 16.7 H Lymphocytes # (Manual) 0.7 L Monocytes # (Manual) D-Dimer POC ABG pO2 Sodium Chloride Carbon Dioxide BUN Glucose POC Glucose 167 H 248 H Hemoglobin A1c Lactic Acid Free T3 Index Ur Specific [place] 08/22/18 08/22/18 08/22/18 05:08 08:41 11:28 WBC RBC MCV MCH RDW Seg Neuts % (Manual) Lymphocytes % (Manual) Seg Neutrophils # Man Lymphocytes # (Manual) Monocytes # (Manual) D-Dimer POC ABG pO2 Sodium Chloride Carbon Dioxide BUN Glucose 196 H POC Glucose 168 H 247 H Hemoglobin A1c Lactic Acid Free T3 Index Ur Specific [place] 08/22/18 08/22/18 08/23/18 16:35 21:48 10:46 WBC RBC MCV MCH RDW Seg Neuts % (Manual) Lymphocytes % (Manual) Seg Neutrophils # Man Lymphocytes # (Manual) Monocytes # (Manual) D-Dimer POC ABG pO2 Sodium Chloride Carbon Dioxide BUN Glucose POC Glucose 193 H 281 H 231 H Hemoglobin A1c Lactic Acid Free T3 Index Ur Specific [place] 08/23/18 08/23/18 08/24/18 17:30 21:47 05:44 WBC 17.5 H RBC 5.15 H MCV 71 L MCH 22 L RDW 18.0 H Seg Neuts % (Manual) Lymphocytes % (Manual) Seg Neutrophils # Man Lymphocytes # (Manual) Monocytes # (Manual) D-Dimer POC ABG pO2 Sodium Chloride Carbon Dioxide BUN Glucose POC Glucose 174 H 259 H Hemoglobin A1c Lactic Acid Free T3 Index Ur Specific [place] 08/24/18 08/24/18 08/24/18 05:44 08:38 12:30 WBC RBC MCV MCH RDW Seg Neuts % (Manual) Lymphocytes % (Manual) Seg Neutrophils # Man Lymphocytes # (Manual) Monocytes # (Manual) D-Dimer POC ABG pO2 Sodium 136 L Chloride 95.3 L Carbon Dioxide BUN Glucose 139 H POC Glucose 213 H 236 H Hemoglobin A1c Lactic Acid Free T3 Index Ur Specific [place] 08/24/18 08/24/18 08/25/18 17:05 21:34 08:31 WBC RBC MCV MCH RDW Seg Neuts % (Manual) Lymphocytes % (Manual) Seg Neutrophils # Man Lymphocytes # (Manual) Monocytes # (Manual) D-Dimer POC ABG pO2 Sodium Chloride Carbon Dioxide BUN Glucose POC Glucose 195 H 305 H 234 H Hemoglobin A1c Lactic Acid Free T3 Index Ur Specific [place] 08/25/18 08/25/18 08/25/18 11:15 18:08 21:17 WBC RBC MCV MCH RDW Seg Neuts % (Manual) Lymphocytes % (Manual) Seg Neutrophils # Man Lymphocytes # (Manual) Monocytes # (Manual) D-Dimer POC ABG pO2 Sodium Chloride Carbon Dioxide BUN Glucose POC Glucose 313 H 245 H 264 H Hemoglobin A1c Lactic Acid Free T3 Index Ur Specific [place] 08/26/18 08/26/18 08/26/18 06:49 06:49 08:39 WBC 22.3 H RBC 5.33 H MCV 71 L MCH 22 L RDW 18.3 H Seg Neuts % (Manual) 89.0 H Lymphocytes % (Manual) 6.0 L Seg Neutrophils # Man 19.8 H Lymphocytes # (Manual) Monocytes # (Manual) 1.1 H D-Dimer POC ABG pO2 Sodium 135 L Chloride 93.8 L Carbon Dioxide 31 H BUN 20 H Glucose 229 H POC Glucose 237 H Hemoglobin A1c Lactic Acid Free T3 Index Ur Specific [place] Chest x-ray: image reviewed
[2018-08-26 13:58] VITALS: BP 134/84
== END 2018-08-26 15:30 | disposition home or self-care (01) | DRG 871 ==
LOC: ED 23:55 → 3A 08-21 07:34
PROVIDERS: ADMIT Internal Medicine; ATTEND Internal Medicine
PROC: 4A033R1 Measurement of Arterial Saturation, Peripheral, Percutaneous Approach (ICD-10-PCS; principal; 2018-08-21)
DX: A41.9 Sepsis, unspecified organism (principal); J96.01 Acute respiratory failure with hypoxia; J18.1 Lobar pneumonia, unspecified organism; J45.901 Unspecified asthma with (acute) exacerbation; J44.1 Chronic obstructive pulmonary disease with (acute) exacerbation; J44.0 Chronic obstructive pulmonary disease with (acute) lower respiratory infection; D68.9 Coagulation defect, unspecified; F17.200 Nicotine dependence, unspecified, uncomplicated; F19.90 Other psychoactive substance use, unspecified, uncomplicated; E11.9 Type 2 diabetes mellitus without complications; E66.01 Morbid (severe) obesity due to excess calories; I10 Essential (primary) hypertension; J20.9 Acute bronchitis, unspecified; Z71.6 Tobacco abuse counseling; Z88.0 Allergy status to penicillin; Z79.899 Other long term (current) drug therapy; Z91.19 Patient's noncompliance with other medical treatment and regimen; Z68.37 Body mass index [BMI] 37.0-37.9, adult
CPT/HCPCS: 36415; 36600; 71046; 71275; 80048; 80053; 81001; 82140; 82803; 82962; 83036; 84439; 84443; 84481; 84703; 85007; 85025; 85027; 85379; 86850; 86900; 86901; 87040; 87086; 90686; 94640; 94760; 96372; 96374; 96375; 99406; G0378; J0360; J0456; J1100; J1644; J1815; J1956; J2270; J2930; J7030; J7050; Q9967

== ENCOUNTER 2019-01-26 14:14 | Outpatient (CLI) | payer OTHER | END 2019-01-26 14:15 | disposition home or self-care (01) | LOC: PF 14:14 | PROVIDERS: ATTEND Internal Medicine | DX: J44.9 Chronic obstructive pulmonary disease, unspecified (principal); I10 Essential (primary) hypertension; E11.9 Type 2 diabetes mellitus without complications | CPT/HCPCS: 94010 ==

== ENCOUNTER 2019-03-07 09:56 | Outpatient (CLI) | payer OTHER ==
--- NOTE | 2019-03-07 10:59 | XRay Report ---
LEFT KNEE HISTORY: Pain. COMPARISON: None. TECHNIQUE: 4 views of the left knee obtained. FINDINGS: Bones: No fracture or dislocation. Joint spaces: Medial and lateral osteophytes with minimal joint space narrowing. Soft tissues: No significant abnormality. Additional findings: No joint effusion. IMPRESSION: Moderate osteoarthritis. Signer Name: Jb Jett MD Signed: 03/07/2019 10:55 AM Workstation Name: [id number]
== END 2019-03-07 09:57 | disposition home or self-care (01) ==
LOC: XRAY 09:56
PROVIDERS: ATTEND Internal Medicine
DX: Z02.71 Encounter for disability determination (principal); M17.12 Unilateral primary osteoarthritis, left knee; M25.762 Osteophyte, left knee; I10 Essential (primary) hypertension; J45.909 Unspecified asthma, uncomplicated